=== PATIENT | female | born 1935 | race Caucasian/White ===

== ENCOUNTER 2019-12-04 20:45 | Emergency (ER) | payer MEDICARE, OTHER, SELFPAY ==
[2019-12-04 20:56] VITALS: BP 150/66; PULSE 108; RESP 20; TEMP 36.6; O2SAT 96; BMI 27.1
--- NOTE | 2019-12-04 21:31 | XR_ITS ---
EXAMINATION: XR CHEST CLINICAL INFORMATION: Shortness of breath. History of pneumonia for one week COMPARISON: None TECHNIQUE: Frontal portable view of the chest was obtained. 9:33 PM FINDINGS: There is hyperinflation of lungs. There is no acute abnormality. There is no infiltrate. No pulmonary vascular congestion. There is no pleural effusion or pneumothorax. Heart size is prominent. IMPRESSION: No acute abnormality of the chest. There is no infiltrate.
--- NOTE | 2019-12-04 21:33 | ECG_ITS ---
Test Reason : SOB Blood Pressure : / mmHG Vent. Rate : 104 BPM Atrial Rate : 104 BPM P-R Int : 182 ms QRS Dur : 092 ms QT Int : 370 ms P-R-T Axes : 067 -21 087 degrees QTc Int : 486 ms Sinus tachycardia Intra-ventricular conduction delay Left axis deviation Abnormal ECG No previous ECGs available Referred By: Nancy Mendes Electronically Signed By:RADHA TYSON MD
[2019-12-04 21:45] VITALS: BP 150/93; PULSE 69; RESP 22; O2SAT 96
[2019-12-04 22:19] LABS: MANUAL DIFF FLAG NO
[2019-12-04 22:20] LABS: Basophils Absolute Auto 0.1 X10*3/uL (0.0-0.2); Basophils Percent Auto 1.9 % (0-2); Eosinophils Absolute Auto 1.1 X10*3/uL (0.0-0.4); Eosinophils Percent Auto 14.6 % (0-4); Hematocrit 41.8 % (37-47); Hemoglobin 12.9 g/dl (12.0-16.0); Imm Gran Abs Auto 0.03 X10*3/uL (0.00-0.03); Imm Gran Pct Auto 0.4 % (0.0-0.4); Lymphocytes Absolute Auto 1.2 X10*3/uL (1.2-4.9); Lymphocytes Percent Auto 17.2 % (20-40); Mean Corpuscular HGB Conc 30.9 g/dl (31.0-35.0); Mean Corpuscular Hemoglobin 26.8 pg (27.0-33.0); Mean Corpuscular Volume 86.9 fL (80-98); Mean Platelet Volume 8.8 fL (9.4-12.3); Monocytes Absolute Auto 0.5 X10*3/uL (0.1-1.2); Monocytes Percent Auto 7.1 % (2-11); Neutrophils Absolute Auto 4.2 X10*3/uL (2.0-8.3); Neutrophils Percent Auto 58.8 % (45-73); Platelet Count 365 X10*3/uL (160-400); Red Blood Count 4.81 X10*6/uL (4.20-5.50); Red Cell Distribution Width 15.3 % (11.0-16.0); White Blood Count 7.2 X10*3/uL (4.8-10.8)
[2019-12-04 22:43] LABS: Lactic Acid 1.3 mmol/L (0.5-2.0)
[2019-12-04 22:46] LABS: Anion Gap 13 (12-20); Blood Urea Nitrogen 13 mg/dL (9-16); Carbon Dioxide 27 mmol/L (22-29); Chloride 103 mmol/L (96-108); Creatinine Clr Calc Pharmacy 55.7; Estimated Glomerular Filt Rate > 60; Glucose Random 137 mg/dL (60-115); Potassium 4.4 mmol/l (3.3-5.1); Sodium 139 mmol/L (135-145)
[2019-12-04] MEDS: 0.9 % Sodium Chloride 1,000 ML 999 ML IVCONT (22:49)
[2019-12-04 22:51] LABS: B Type Natriuretic Peptide < 10 pg/mL (<100)
--- NOTE | 2019-12-04 23:08 | ED_ITS ---
HPI - SOB/Dyspnea General Chief Complaint: Dyspnea Stated Complaint: MILD RESPIRATORY DISTRESS Time Seen by Provider: 12/04/19 21:06 Source: patient and EMS Mode of arrival: EMS Limitations: no limitations History of Present Illness HPI Narrative: patient comes to emergency room complaining of cough and shortness of breath. Patient states she was admitted for pneumonia in [facility] last week, then she was sent to short-term rehab and was discharged from there 2 days ago. Patient states her breathing has not gotten worse for the last 2 days since she was discharged from short-term rehab, however she is not getting any better. Patient states she still continues to cough. Patient denies any fever or chills. Patient states she feels a bit shortness of breath, however it has not changed for the last week. Patient denies chest pain MD elicited complaint: shortness of breath and cough Onset (ago): week(s) Context: recent illness Timing: constant Severity: moderate Related Data Home Medications Medication Instructions Recorded Confirmed amlodipine 1 tab PO DAILY 12/05/19 12/05/19 aspirin 1 tab PO DAILY 12/05/19 12/05/19 hydrochlorothiazide 0.5 tab PO DAILY 12/05/19 12/05/19 omeprazole 1 cap PO DAILY 12/05/19 12/05/19 Allergies Allergy/AdvReac Type Severity Reaction Status Date / Time No Known Allergies Allergy Verified 12/04/19 21:31 Review of Systems Review of Systems: Constitutional: No Weight loss, No Fever, No Chills, No Night Sweats, No Fatigue, No Malaise ENT/Mouth: No Hearing loss, No Ear Pain, No Nasal Congestion, No Sinus Pain, No Hoarseness, No sore throat, No Rhinorrhea, No Swallowing Difficulty Eyes: No Eye Pain, No Swelling, No Redness, No Foreign Body, No Discharge, No Vision Changes Cardiovascular: No Chest Pain, No SOB, No Dyspnea on Exertion, No Orthopnea, No Edema, No Palpitations Respiratory: continues productive cough, No Wheezing, mild continues Dyspnea Gastrointestinal: No Nausea, No Vomiting, No Diarrhea, No Constipation, No abdominal Pain, No Hematochezia, No Melena Genitourinary: no irregular bleeding, No Dysuria, No Urinary Frequency, No Hematuria, No Urinary Incontinence, No Urgency, No Flank Pain, No Urinary Flow Changes, No Hesitancy Musculoskeletal: No joint pain, No Myalgias, No Joint Swelling Skin: No Skin Lesions, No rash Neuro: No Weakness, No Numbness, No Paresthesias, No Loss of Consciousness, No Dizziness, No Headache Psych: No Anxiety/Panic, No Depression, No SI/HI/AH/VH, No Social Issues, Heme/Lymph: No Bruising, No Bleeding,No Lymphadenopathy Endocrine: No Polyuria, No Polydipsia, No Temperature Intolerance [facility] Past Medical History Medical History Acid reflux History of cancer Surgical History H/O: hysterectomy Social History Social History Alcohol intake: never Smoking Status: Never smoker Use of substances other than those prescribed or required for medical reasons: No Advance Directives: No Advance Directives Information Provided: Yes Physical Exam Vital Signs: Vital Signs: Vital Signs Temp Pulse Resp BP Pulse Ox 12/05/19 03:18 100 16 114/59 L 95 12/05/19 00:00 98.0 F 103 H 16 110/46 L 96 12/04/19 21:45 69 22 H 150/93 H 96 12/04/19 20:56 97.8 F 108 H 20 150/66 H 96 Body Mass Index 27.1 Appearance: Alert. Oriented X3. No acute distress. Eyes: Pupils equal, round and reactive to light. ENT: Pharynx normal. Neck: Normal inspection. Neck supple. No lymph nodes noted. No crepitus CVS: Normal heart rate and rhythm. Pulses normal. Normal S1 and S2 Respiratory: No respiratory distress. bilateral crackles, mild bilateral wheezing and rales Abdomen: Soft and nontender. Skin: Skin warm and dry. Normal skin color. Normal skin turgor. Extremities: chronic bilateral lower extremity edema +3 and chronic venous stasis Neuro: Oriented X 3. No motor deficit. No sensory deficit. Moving all extermities. No slurred speech. Course Reevaluation(s) Reevaluation #1: patient's wheezing continues to worse, bronchodilator offered CT scan: 1. No pulmonary embolus or other acute intrathoracic findings identified. 2. Moderate-sized hiatal hernia. 3. Cholelithiasis. I discussed the labs and CT with the patient, nothing acute. However, patient states that she feels weak, patient is by herself, unable to take care of herself. Patient states her daughter lives 1 mi away, however patient is alone most of the day. Patient is requesting to be sent back to short-term rehab patient remains stable, saturating 98% on room air. physical therapy and case management consult pending Sign out given to Dr. Maldonado Time: 00:29 MDM - SOB/Dyspnea Lab Data Result diagrams: 12/04/19 22:08 12/04/19 22:08 Labs: Lab Results 12/04/19 12/04/19 12/04/19 Range/Units 22:08 22:08 22:08 WBC 7.2 (4.8-10.8) X10*3/uL RBC 4.81 (4.20-5.50) X10*6/uL Hgb 12.9 (12.0-16.0) g/dl Hct 41.8 (37-47) % MCV 86.9 (80-98) fL MCH 26.8 L (27.0-33.0) pg MCHC 30.9 L (31.0-35.0) g/dl RDW 15.3 (11.0-16.0) % Plt Count 365 (160-400) X10*3/uL MPV 8.8 L (9.4-12.3) fL Immature Gran % (Auto) 0.4 (0.0-0.4) % Neut % (Auto) 58.8 (45-73) % Lymph % (Auto) 17.2 L (20-40) % [place] % (Auto) 7.1 (2-11) % Eos % (Auto) 14.6 H (0-4) % Baso % (Auto) 1.9 (0-2) % Lymph # (Auto) 1.2 (1.2-4.9) X10*3/uL [place] # (Auto) 0.5 (0.1-1.2) X10*3/uL Eos # (Auto) 1.1 H (0.0-0.4) X10*3/uL Baso # (Auto) 0.1 (0.0-0.2) X10*3/uL Abs Immat Gran (auto) 0.03 (0.00-0.03) X10*3/uL Absolute Neuts (auto) 4.2 (2.0-8.3) X10*3/uL Absolute Nucleated RBC 0.000 (0.0-0.012) X10*3/uL Nucleated RBC % (auto) 0.0 (0.0-0.2) /100WBC Sodium 139 (135-145) mmol/L Potassium 4.4 (3.3-5.1) mmol/l Chloride 103 (96-108) mmol/L Carbon Dioxide 27 (22-29) mmol/L Anion Gap 13 (12-20) BUN 13 (9-16) mg/dL Creatinine 0.73 (0.5-1.4) mg/dL Estim Creat Clear Calc 55.7 Estimated GFR > 60 Random Glucose 137 H (60-115) mg/dL Lactic Acid 1.3 (0.5-2.0) mmol/L Calcium 9.0 (8.4-10.2) mg/dL B-Natriuretic Peptide (<100) pg/mL Coronavirus (PCR) (Negative) 12/04/19 12/04/19 Range/Units 22:08 22:56 WBC (4.8-10.8) X10*3/uL RBC (4.20-5.50) X10*6/uL Hgb (12.0-16.0) g/dl Hct (37-47) % MCV (80-98) fL MCH (27.0-33.0) pg MCHC (31.0-35.0) g/dl RDW (11.0-16.0) % Plt Count (160-400) X10*3/uL MPV (9.4-12.3) fL Immature Gran % (Auto) (0.0-0.4) % Neut % (Auto) (45-73) % Lymph % (Auto) (20-40) % [place] % (Auto) (2-11) % Eos % (Auto) (0-4) % Baso % (Auto) (0-2) % Lymph # (Auto) (1.2-4.9) X10*3/uL [place] # (Auto) (0.1-1.2) X10*3/uL Eos # (Auto) (0.0-0.4) X10*3/uL Baso # (Auto) (0.0-0.2) X10*3/uL Abs Immat Gran (auto) (0.00-0.03) X10*3/uL Absolute Neuts (auto) (2.0-8.3) X10*3/uL Absolute Nucleated RBC (0.0-0.012) X10*3/uL Nucleated RBC % (auto) (0.0-0.2) /100WBC Sodium (135-145) mmol/L Potassium (3.3-5.1) mmol/l Chloride (96-108) mmol/L Carbon Dioxide (22-29) mmol/L Anion Gap (12-20) BUN (9-16) mg/dL Creatinine (0.5-1.4) mg/dL Estim Creat Clear Calc Estimated GFR Random Glucose (60-115) mg/dL Lactic Acid (0.5-2.0) mmol/L Calcium (8.4-10.2) mg/dL B-Natriuretic Peptide < 10 (<100) pg/mL Coronavirus (PCR) NEGATIVE (Negative) ECG Data Attestation: I personally reviewed and interpreted this ECG as follows: ( sinus rhythm, heart rate 105, QTC 486, no ST segment depression) ECG interpretation date: 12/05/19 ECG interpretation time: 00:30 Discharge Plan Discharge Clinical Impression: Muscular deconditioning Prescriptions: No Action amlodipine 5 mg tablet 1 tab PO DAILY RF: 0 aspirin 81 mg tablet,delayed release (DR/EC) 1 tab PO DAILY RF: 0 omeprazole 20 mg capsule,delayed release(DR/EC) 1 cap PO DAILY RF: 0 hydrochlorothiazide 25 mg tablet 0.5 tab PO DAILY RF: 0
--- NOTE | 2019-12-04 23:15 | CT_ITS ---
EXAMINATION: CT ANGIOGRAM OF THE CHEST WITH AND WITHOUT CONTRAST (CT PULMONARY ANGIOGRAM FOR PE) CLINICAL INFORMATION: Reason for Exam SOB, tachycardic, imobilization COMPARISON: Chest x-ray 12/04/2019 TECHNIQUE: Prior to contrast administration, noncontrast localization images were obtained. Subsequently, multidetector volumetric imaging was performed from the thoracic inlet to below the diaphragms following the administration of 80 mL Omnipaque 350 intravenous contrast. No contrast reaction reported Sagittal, coronal, and MIP oblique sagittal reformatted images were obtained on the CT workstation, uploaded to PACS, and reviewed. This CT examination was performed using dose optimization techniques as appropriate, variously including the following: *Automated exposure control *Adjustment of mA and/or kV according to patient size (this includes techniques or standardized protocols for targeted exams where dose is matched to indication/reason for exam; i.e. extremities or head) *Use of iterative reconstruction technique Total exam dose-length product 416 mGy-cm FINDINGS: QUALITY OF STUDY/CONTRAST BOLUS: Satisfactory. PULMONARY ARTERIES: No central or segmental pulmonary emboli. THORACIC AORTA: No aneurysm or dissection. Scattered atherosclerotic calcifications are present. LUNG: No regions of consolidation bilaterally. There is minimal atelectasis towards the lung bases. Calcified granulomas are noted in the right lung. PLEURA: No pleural effusion or pneumothorax. MEDIASTINUM: Normal heart size. No pericardial effusion. No hilar or mediastinal lymphadenopathy. Moderate-sized hiatal hernia is present. CHEST WALL/AXILLA: No axillary or internal mammary lymphadenopathy. OSSEOUS STRUCTURES: Changes of ankylosing spondylitis noted in the spine. UPPER ABDOMEN: Cholelithiasis is noted. No reflux of contrast into the hepatic veins to suggest elevated right heart pressures. IMPRESSION: 1. No pulmonary embolus or other acute intrathoracic findings identified. 2. Moderate-sized hiatal hernia. 3. Cholelithiasis. VTE: negative
[2019-12-05] VITALS: BP 110/46; PULSE 103; RESP 16; TEMP 36.7; O2SAT 96
--- NOTE | 2019-12-05 | PC.NURSE ---
pt w/i/e wheezing per verbal order from doc will put in bronch
[2019-12-05] MEDS: iohexoL 350 MG/ML 100 ML INFUS..BTL 65 ML IV (00:43)
[2019-12-05 01:05] LABS: SARS COV2 PCR INHOUSE NEGATIVE (Negative)
[2019-12-05 03:18] VITALS: BP 114/59; PULSE 100; RESP 16; O2SAT 95
--- NOTE | 2019-12-05 04:11 | PC.NURSE ---
pt moved over into hospital bed, changed, cleaned, repositioned. Pt given hydration and is resting comfortably now.
[2019-12-05] MEDS: guaiFENesin 200 MG/10 ML 10 ML LIQUID PO ×2 (07:24→12:24)
--- NOTE | 2019-12-05 07:33 | PC.NURSE ---
report taken from [place] r[place] pt here for sob r/t pnuemonia. xr and cta show no infiltrate or acute disease in lungs, pt satting 95 on 2l nc. pt c/o significant cough, coughing throughout first encounter. also complaining of bm incontinence from coughing. pt cleaned of large amount formed brown stool, able to repostition self to assist this rn. pt given cough syrup per request. awaitng breakfast tray.
--- NOTE | 2019-12-05 07:59 | PC.NURSE ---
physical therapy at bedside for eval
--- NOTE | 2019-12-05 09:02 | PC.NURSE ---
pt given breakfast, tolerating po w/o issue.
--- NOTE | 2019-12-05 11:28 | MHC.CM.ED ---
PATIENT TO TRANSFER TO [facility] FOR 13:00 [facility]. RN, UNIT, PATIENT, AND DAUGHTER (LINDA [phone]) AWARE OF PLAN.
--- NOTE | 2019-12-05 11:44 | PC.NURSE ---
PER CASE MGMT, PT TO BE TRANSFERRED TO [facility] AT 1300 TODAY.
--- NOTE | 2019-12-05 12:02 | PC.NURSE ---
daughter michelle updated on plan of care
== END 2019-12-05 13:35 | disposition skilled nursing facility (03) ==
PROVIDERS: Emergency Provider Emergency Medicine; PCP Hospitalist
DX: R53.81 Other malaise (principal); Z20.828 Contact with and (suspected) exposure to other viral communicable diseases; R06.02 Shortness of breath
CPT/HCPCS: 36415; 71045; 71275; 80048; 83605; 83880; 85025; 87040; 87635; 93005; 97162; 99284

== ENCOUNTER 2019-12-06 06:45 | Outpatient (REF) | payer SELFPAY ==
[2019-12-06 07:44] LABS: Hematocrit 41.2 % (37-47); Hemoglobin 12.5 g/dl (12.0-16.0); Mean Corpuscular HGB Conc 30.3 g/dl (31.0-35.0); Mean Corpuscular Hemoglobin 26.8 pg (27.0-33.0); Mean Corpuscular Volume 88.2 fL (80-98); Mean Platelet Volume 9.2 fL (9.4-12.3); Platelet Count 336 X10*3/uL (160-400); Red Blood Count 4.67 X10*6/uL (4.20-5.50); Red Cell Distribution Width 15.4 % (11.0-16.0); White Blood Count 5.6 X10*3/uL (4.8-10.8)
[2019-12-06 08:09] LABS: Alanine Aminotransferase 12 U/L (0-31); Albumin Level 3.2 g/dL (3.5-5.0); Alkaline Phosphatase 146 U/L (39-117); Anion Gap 12 (12-20); Aspartate Amino Transferase 12 U/L (5-31); Bilirubin Total 0.6 mg/dL (0.0-1.0); Blood Urea Nitrogen 8 mg/dL (9-16); Calcium 8.6 mg/dL (8.4-10.2); Carbon Dioxide 30 mmol/L (22-29); Chloride 103 mmol/L (96-108); Estimated Glomerular Filt Rate > 60; Glucose Random 113 mg/dL (60-115); Potassium 4.3 mmol/l (3.3-5.1); Sodium 141 mmol/L (135-145); Total Protein 6.6 g/dL (6.5-8.0)
== END 2019-12-06 06:46 | disposition home or self-care (01) ==
LOC: HO.MMNH1L 06:45
PROVIDERS: Visit Provider Family Medicine
DX: I10 Essential (primary) hypertension (principal)
CPT/HCPCS: 36415; 80053; 85027

== ENCOUNTER 2020-01-13 07:40 | Inpatient (IN) | payer MEDICARE, OTHER, SELFPAY ==
[2020-01-13] VITALS (27 sets, daily range): BP systolic 94–224; BP diastolic 28–119; PULSE 64–110; RESP 12–32; TEMP 34.8–37.9; O2SAT 91–100; BMI 27.4
--- NOTE | 2020-01-13 07:53 | XR_ITS ---
EXAMINATION: XR CHEST CLINICAL INFORMATION: Chest pain COMPARISON: Previous chest x-ray and chest CTA 12/04/2019 TECHNIQUE: Frontal view of the chest was obtained. FINDINGS: The cardiac and mediastinal contours are stable. There may be bronchial wall thickening at the left lung base. The lungs are otherwise clear. There is no pleural effusion or pneumothorax. There are degenerative changes of the spine and shoulders. XR/XR chest 1V IMPRESSION: Question bronchial wall thickening of the left lung base. No evidence of pneumonia.
--- NOTE | 2020-01-13 07:53 | ECG_ITS ---
Test Reason : SOB Blood Pressure : / mmHG Vent. Rate : 099 BPM Atrial Rate : 101 BPM P-R Int : 000 ms QRS Dur : 106 ms QT Int : 378 ms P-R-T Axes : 000 -02 065 degrees QTc Int : 485 ms Normal sinus rhythm with 1st degree A-V block Intra-ventricular conduction delay Nonspecific ST and T wave abnormality Abnormal ECG When compared with ECG of 04-DEC-2019 22:08, No significant changes seen Referred By: Arya Alexandre Electronically Signed By:RADHA TYSON MD
--- NOTE | 2020-01-13 07:57 | ED_ITS ---
HPI - SOB/Dyspnea General Chief Complaint: Upper Respiratory Symptoms Stated Complaint: SOB/PRODUCTIVE COUGH Time Seen by Provider: 01/13/20 07:53 History of Present Illness HPI Narrative: This is a 84 years old of female brought here by buffet server in acute respiratory distress, at arrival she is tachypneic, using accessory muscle, unable to speak. She was placed on CPAP by the buffet server MD elicited complaint: shortness of breath and cough Onset (ago): hour(s) (2) Timing: constant Severity: severe Exacerbating factors: lying flat Relieving factors: oxygen Associated symptoms: fever and sputum production Related Data Home Medications Medication Instructions Recorded Confirmed aspirin 1 tab PO DAILY 12/05/19 01/13/20 hydrochlorothiazide 0.5 tab PO DAILY 12/05/19 01/13/20 omeprazole 1 cap PO DAILY 12/05/19 01/13/20 Allergies Allergy/AdvReac Type Severity Reaction Status Date / Time No Known Allergies Allergy Verified 12/04/19 21:31 Review of Systems Review of Systems: Yes all other systems are reviewed and are negative Constitutional: Constitutional: Reports weakness Cardiovascular: Cardiovascular: Reports dyspnea Respiratory: Respiratory: Reports cough, Reports excessive phlegm production and Reports dyspnea Neurologic: Reports weakness PMFSH Past Medical History Attestation statement: The following information was validated with the patient. Medical History (Updated 01/13/20 @ 14:28 by Blake Carlson) Acid reflux History of cancer Kyphoscoliosis Surgical History H/O: hysterectomy Social History Social History Alcohol intake: never Smoking Status: Never smoker Advance Directives Date on File: 12/04/19 Physical Exam Vital Signs: Vital Signs: Last Vital Signs Temp 100.2 F 01/13/20 11:03 Pulse 90 01/13/20 13:32 Resp 18 01/13/20 11:03 BP 117/60 01/13/20 13:32 Pulse Ox 97 01/13/20 13:32 Body Mass Index 27.4 HENMT: Head: Yes normal to inspection and Yes No palpable skull fracture present Eyes: General: appearance normal, both eyes and all related structures Neck: Neck: Yes normal visual inspection and Yes full ROM Chest: Chest palpation & inspection: normal inspection of the chest Resp: Effort & Inspection: abnormal respiratory pattern, Actively coughing and respiratory distress Cardio: Rate: regular rate Rhythm: regular rhythm GI: Inspection: Yes normal to inspection Palpation (GI): Soft to palpation and no guarding Skin: General skin exam: no rashes or lesions noted and pallor Extrem: General: Yes edema Course Course Course Narrative: Spoke with daughter India [id number] Reevaluation(s) Reevaluation #1: The patient is improving clinically, ABG consistent with respiratory acidosis, elevated CO2, patient was placed on BiPAP. There is no clinical evidence of sepsis she is afebrile she has a normal white count, she is actually very hypertensive. She has lower extremity edema the patient is more consistent with congestive heart failure. Case was discussed with the light industrial supervisor Dr Carranza who is at this time here in the department examining the patient. The light industrial supervisor is requesting also a dose of IV antibiotic. Patient will be admitted to the intensive care unit. ABG will be repeated in about an hour to see the trend. Patient may need to be intubated if they gas in the clinical picture does not improve Time: 09:26 Time: 11:31 Additional Reevaluation(s): PATIENT BECAME MORE LETHARGIC ABG SHOWED A WORSENING ACIDEMIA DECISION TO INTUBATE THE PATIENT. PATIENT WAS INTUBATED WITH RSI 1 ATTEMPT NO DESAT I DO NOT THINK THAT SHE IS SEPTIC SHE HAS NO FEVER, SHE HAS A NORMAL WHITE COUN T, SHE IS ACTUALLY HYPERTENSIVE. THIS WAS DISCUSSED WITH THE LINE RIDER DR CARRANZA AND THERE IS NO INDICATION TO OBTAIN A LACTIC ACID. A CHEST X-RAY X2 WAS READ NEGATIVE FOR PNEUMONIA. THE ETIOLOGY OF THE RESPIRATORY FAILURE COULD BE MULTIFACTORIAL, SHE IS VERY KYPHOTIC, SHE HAS MOST LIKELY UNDERLYING COPD . AFTER CONSULTING AND WITH THE LINE RIDER WILL GET A CHEST CT WITHOUT CONTRAST, TO BE NOTED THAT SHE WAS IN EMERGENCY ROOM FEW WEEKS AGO IN THAT SHE HAD THAT CT CHEST WITH IV CONTRAST WHICH WAS NEGATIVE Procedures Intubation Time out performed: Yes sedative: Etomidate paralytic: Succinylcholine Laryngoscope: fiber optic video scope ET Tube Size: 7.5 Tube Placement Confirmation: visualized tube passing through cords and equal breath sounds bilaterally Patient Tolerated Procedure: well and no complications Intubation Complications: none MDM - SOB/Dyspnea Lab Data Result diagrams: 01/13/20 08:24 01/13/20 08:24 Labs: Lab Results 01/13/20 01/13/20 01/13/20 Range/Units 08:13 08:16 08:24 WBC 5.9 (4.8-10.8) X10*3/uL RBC 5.55 H (4.20-5.50) X10*6/uL Hgb 15.1 (12.0-16.0) g/dl Hct 48.2 H (37-47) % MCV 86.8 (80-98) fL MCH 27.2 (27.0-33.0) pg MCHC 31.3 (31.0-35.0) g/dl RDW 14.6 (11.0-16.0) % Plt Count 289 (160-400) X10*3/uL MPV 8.9 L (9.4-12.3) fL Immature Gran % (Auto) 0.2 (0.0-0.4) % Neut % (Auto) 73.3 H (45-73) % Lymph % (Auto) 14.9 L (20-40) % [place] % (Auto) 6.8 (2-11) % Eos % (Auto) 3.8 (0-4) % Baso % (Auto) 1.0 (0-2) % Lymph # (Auto) 0.9 L (1.2-4.9) X10*3/uL [place] # (Auto) 0.4 (0.1-1.2) X10*3/uL Eos # (Auto) 0.2 (0.0-0.4) X10*3/uL Baso # (Auto) 0.1 (0.0-0.2) X10*3/uL Abs Immat Gran (auto) 0.01 (0.00-0.03) X10*3/uL Absolute Neuts (auto) 4.3 (2.0-8.3) X10*3/uL Absolute Nucleated RBC 0.000 (0.0-0.012) X10*3/uL Nucleated RBC % (auto) 0.0 (0.0-0.2) /100WBC PT (10.8-13.0) SEC INR (0.9-1.1) ABG pH 7.24 L (7.35-7.45) ABG pCO2 78 H* (32-45) mmhg ABG pO2 132 H (83-108) mmhg ABG HCO3 33 H (22-26) mmol/l ABG O2 Saturation 98.4 % ABG Base Excess 2.0 Oxygen Given 60% Sodium (135-145) mmol/L Potassium (3.3-5.1) mmol/l Chloride (96-108) mmol/L Carbon Dioxide (22-29) mmol/L Anion Gap (12-20) BUN (9-16) mg/dL Creatinine (0.5-1.4) mg/dL Estim Creat Clear Calc Estimated GFR Random Glucose (60-115) mg/dL Calcium (8.4-10.2) mg/dL Total Bilirubin (0.0-1.0) mg/dL AST (5-31) U/L ALT (0-31) U/L Alkaline Phosphatase (39-117) U/L Troponin I High Sens (<3.5-17.0) ng/L B-Natriuretic Peptide (<100) pg/mL Total Protein (6.5-8.0) g/dL Albumin (3.5-5.0) g/dL Urine Color Urine Appearance Urine pH (5.0-8.0) Ur Specific [place] (1.005-1.025) Urine Protein (NEG-TRACE) MG/DL Urine Glucose (UA) (NEG) MG/DL Urine Ketones (NEG) MG/DL Urine Blood (NEG) Urine Nitrite (NEG) Ur Leukocyte Esterase (NEG) Urine RBC (0) /HPF Urine WBC (0-4) /HPF Ur Squamous Epith Cells /LPF Amorphous Sediment /LPF Urine Bacteria /LPF Granular Casts /LPF Coronavirus (PCR) NEGATIVE (Negative) Influenza Type A (PCR) NEGATIVE (Negative) Influenza Type B (PCR) NEGATIVE (Negative) RSV RNA Qual (PCR) NEGATIVE (Negative) 01/13/20 01/13/20 01/13/20 Range/Units 08:24 08:24 08:24 WBC (4.8-10.8) X10*3/uL RBC (4.20-5.50) X10*6/uL Hgb (12.0-16.0) g/dl Hct (37-47) % MCV (80-98) fL MCH (27.0-33.0) pg MCHC (31.0-35.0) g/dl RDW (11.0-16.0) % Plt Count (160-400) X10*3/uL MPV (9.4-12.3) fL Immature Gran % (Auto) (0.0-0.4) % Neut % (Auto) (45-73) % Lymph % (Auto) (20-40) % [place] % (Auto) (2-11) % Eos % (Auto) (0-4) % Baso % (Auto) (0-2) % Lymph # (Auto) (1.2-4.9) X10*3/uL [place] # (Auto) (0.1-1.2) X10*3/uL Eos # (Auto) (0.0-0.4) X10*3/uL Baso # (Auto) (0.0-0.2) X10*3/uL Abs Immat Gran (auto) (0.00-0.03) X10*3/uL Absolute Neuts (auto) (2.0-8.3) X10*3/uL Absolute Nucleated RBC (0.0-0.012) X10*3/uL Nucleated RBC % (auto) (0.0-0.2) /100WBC PT 11.5 (10.8-13.0) SEC INR 1.0 (0.9-1.1) ABG pH (7.35-7.45) ABG pCO2 (32-45) mmhg ABG pO2 (83-108) mmhg ABG HCO3 (22-26) mmol/l ABG O2 Saturation % ABG Base Excess Oxygen Given Sodium 132 L (135-145) mmol/L Potassium 4.0 D (3.3-5.1) mmol/l Chloride 94 L (96-108) mmol/L Carbon Dioxide 28 (22-29) mmol/L Anion Gap 14 (12-20) BUN 11 (9-16) mg/dL Creatinine 0.73 (0.5-1.4) mg/dL Estim Creat Clear Calc 51.9 Estimated GFR > 60 Random Glucose 196 H D (60-115) mg/dL Calcium 8.9 (8.4-10.2) mg/dL Total Bilirubin 0.4 (0.0-1.0) mg/dL AST 11 (5-31) U/L ALT 11 (0-31) U/L Alkaline Phosphatase 185 H D (39-117) U/L Troponin I High Sens < 3.5 (<3.5-17.0) ng/L B-Natriuretic Peptide 31 (<100) pg/mL Total Protein 8.5 H D (6.5-8.0) g/dL Albumin 4.2 D (3.5-5.0) g/dL Urine Color Urine Appearance Urine pH (5.0-8.0) Ur Specific [place] (1.005-1.025) Urine Protein (NEG-TRACE) MG/DL Urine Glucose (UA) (NEG) MG/DL Urine Ketones (NEG) MG/DL Urine Blood (NEG) Urine Nitrite (NEG) Ur Leukocyte Esterase (NEG) Urine RBC (0) /HPF Urine WBC (0-4) /HPF Ur Squamous Epith Cells /LPF Amorphous Sediment /LPF Urine Bacteria /LPF Granular Casts /LPF Coronavirus (PCR) (Negative) Influenza Type A (PCR) (Negative) Influenza Type B (PCR) (Negative) RSV RNA Qual (PCR) (Negative) 01/13/20 01/13/20 Range/Units 08:57 10:40 WBC (4.8-10.8) X10*3/uL RBC (4.20-5.50) X10*6/uL Hgb (12.0-16.0) g/dl Hct (37-47) % MCV (80-98) fL MCH (27.0-33.0) pg MCHC (31.0-35.0) g/dl RDW (11.0-16.0) % Plt Count (160-400) X10*3/uL MPV (9.4-12.3) fL Immature Gran % (Auto) (0.0-0.4) % Neut % (Auto) (45-73) % Lymph % (Auto) (20-40) % [place] % (Auto) (2-11) % Eos % (Auto) (0-4) % Baso % (Auto) (0-2) % Lymph # (Auto) (1.2-4.9) X10*3/uL [place] # (Auto) (0.1-1.2) X10*3/uL Eos # (Auto) (0.0-0.4) X10*3/uL Baso # (Auto) (0.0-0.2) X10*3/uL Abs Immat Gran (auto) (0.00-0.03) X10*3/uL Absolute Neuts (auto) (2.0-8.3) X10*3/uL Absolute Nucleated RBC (0.0-0.012) X10*3/uL Nucleated RBC % (auto) (0.0-0.2) /100WBC PT (10.8-13.0) SEC INR (0.9-1.1) ABG pH 7.18 L* (7.35-7.45) ABG pCO2 93 H* (32-45) mmhg ABG pO2 82 L (83-108) mmhg ABG HCO3 34 H (22-26) mmol/l ABG O2 Saturation 94.1 % ABG Base Excess 2.1 Oxygen Given 50% Sodium (135-145) mmol/L Potassium (3.3-5.1) mmol/l Chloride (96-108) mmol/L Carbon Dioxide (22-29) mmol/L Anion Gap (12-20) BUN (9-16) mg/dL Creatinine (0.5-1.4) mg/dL Estim Creat Clear Calc Estimated GFR Random Glucose (60-115) mg/dL Calcium (8.4-10.2) mg/dL Total Bilirubin (0.0-1.0) mg/dL AST (5-31) U/L ALT (0-31) U/L Alkaline Phosphatase (39-117) U/L Troponin I High Sens (<3.5-17.0) ng/L B-Natriuretic Peptide (<100) pg/mL Total Protein (6.5-8.0) g/dL Albumin (3.5-5.0) g/dL Urine Color YELLOW Urine Appearance CLOUDY Urine pH 7.5 (5.0-8.0) Ur Specific [place] 1.025 (1.005-1.025) Urine Protein 2+ H (NEG-TRACE) MG/DL Urine Glucose (UA) 100 H (NEG) MG/DL Urine Ketones NEG (NEG) MG/DL Urine Blood 3+ H (NEG) Urine Nitrite NEG (NEG) Ur Leukocyte Esterase NEG (NEG) Urine RBC 15-29 H (0) /HPF Urine WBC 1-4 (0-4) /HPF Ur Squamous Epith Cells TRACE /LPF Amorphous Sediment 2+ /LPF Urine Bacteria NONE /LPF Granular Casts 1-4 /LPF Coronavirus (PCR) (Negative) Influenza Type A (PCR) (Negative) Influenza Type B (PCR) (Negative) RSV RNA Qual (PCR) (Negative) ECG Data Attestation: I personally reviewed and interpreted this ECG as follows: ECG interpretation date: 01/13/20 ECG interpretation time: 08:30 Pacemaker model: Normal sinus rhythm rate 99 intraventricular conduction delay and no ischem Critical Care Time Critical Care Time Critical Care Time: Yes Total Critical Care Time: 40 Attestation: About 40 minutes was spent for the patient care speaking with the daughter, speaking with light industrial supervisor as reviewing the labs speaking with the nurse examiming the patient Discharge Plan Discharge Clinical Impression: Acute respiratory failure with hypoxia and hypercapnia Patient Disposition: Admitted As Inpatient Discharge Date/Time: 01/13/20 14:28
--- NOTE | 2020-01-13 08:24 | PC.NURSE ---
SEEN BY DR VILA AT TIME OF TRIAGE. PT TRIALEDOFF CPAP AND VENTI W/O POOR RESULTS. PL;ACED BACK ON CPAP. CLEANED UP AND B[place]RE[place] PLACED BY PCT. EKG, CXR DONE. 2O G L AC BY EMS.
[2020-01-13] MEDS: Furosemide 20 MG/2 ML VIAL IVPUSH (08:31)
[2020-01-13] MEDS: Morphine Sulfate 4 MG/ML CARTRIDGE 2 MG IVPUSH (08:31)
[2020-01-13 08:32] LABS: MANUAL DIFF FLAG NO
--- NOTE | 2020-01-13 08:34 | PC.NURSE ---
MEDICATED PER ORDERS WITH LASIX AND MORPHINE
[2020-01-13 08:36] LABS: Pt Ventilation O2% 60%
[2020-01-13 08:40] LABS: Prothrombin Time 11.5 SEC (10.8-13.0)
[2020-01-13 08:44] LABS: Basophils Absolute Auto 0.1 X10*3/uL (0.0-0.2); Eosinophils Absolute Auto 0.2 X10*3/uL (0.0-0.4); Eosinophils Percent Auto 3.8 % (0-4); Hematocrit 48.2 % (37-47); Hemoglobin 15.1 g/dl (12.0-16.0); Imm Gran Abs Auto 0.01 X10*3/uL (0.00-0.03); Imm Gran Pct Auto 0.2 % (0.0-0.4); Lymphocytes Absolute Auto 0.9 X10*3/uL (1.2-4.9); Lymphocytes Percent Auto 14.9 % (20-40); Mean Corpuscular HGB Conc 31.3 g/dl (31.0-35.0); Mean Corpuscular Hemoglobin 27.2 pg (27.0-33.0); Mean Corpuscular Volume 86.8 fL (80-98); Mean Platelet Volume 8.9 fL (9.4-12.3); Monocytes Absolute Auto 0.4 X10*3/uL (0.1-1.2); Monocytes Percent Auto 6.8 % (2-11); Neutrophils Absolute Auto 4.3 X10*3/uL (2.0-8.3); Neutrophils Percent Auto 73.3 % (45-73); Platelet Count 289 X10*3/uL (160-400); Red Blood Count 5.55 X10*6/uL (4.20-5.50); Red Cell Distribution Width 14.6 % (11.0-16.0); White Blood Count 5.9 X10*3/uL (4.8-10.8)
[2020-01-13 08:47] LABS: HCO3 ABG 33 mmol/l (22-26); PO2 ABG 132 mmhg (83-108); pH ABG 7.24 (7.35-7.45)
[2020-01-13 08:48] LABS: Oxygen Saturation ABG 98.4 %
[2020-01-13 08:50] LABS: ABG PCO2 78 mmhg (32-45)
--- NOTE | 2020-01-13 08:53 | PC.NURSE ---
DOING MUCH BETTER ON CPAP. DUE TO ABGS - PLACED ON BIPAP PER DR VILA.
[2020-01-13 09:01] LABS: Influenza A PCR NEGATIVE (Negative); Influenza B PCR NEGATIVE (Negative); Resp Syncy Virus RNA Qual PCR NEGATIVE (Negative); SARS COV2 PCR INHOUSE NEGATIVE (Negative)
[2020-01-13 09:02] LABS: Troponin-I High Sensitivity < 3.5 ng/L (<3.5-17.0)
[2020-01-13 09:04] LABS: Alanine Aminotransferase 11 U/L (0-31); Albumin Level 4.2 g/dL (3.5-5.0); Alkaline Phosphatase 185 U/L (39-117); Anion Gap 14 (12-20); Aspartate Amino Transferase 11 U/L (5-31); Bilirubin Total 0.4 mg/dL (0.0-1.0); Blood Urea Nitrogen 11 mg/dL (9-16); Calcium 8.9 mg/dL (8.4-10.2); Carbon Dioxide 28 mmol/L (22-29); Chloride 94 mmol/L (96-108); Creatinine Clr Calc Pharmacy 51.9; Estimated Glomerular Filt Rate > 60; Glucose Random 196 mg/dL (60-115); Sodium 132 mmol/L (135-145); Total Protein 8.5 g/dL (6.5-8.0)
[2020-01-13 09:08] LABS: Glucose Urine UA 100 MG/DL (NEG); Leukocyte Esterase Urine NEG (NEG); Nitrite Urine NEG (NEG); PH 7.5 (5.0-8.0); Specific Gravity - Urine 1.025 (1.005-1.025); Urine Blood 3+ (NEG); Urine Ketones NEG (NEG); Urine Protein 2+ MG/DL (NEG-TRACE)
--- NOTE | 2020-01-13 09:09 | PC.NURSE ---
DR VILA SPOKE WITH FAMILY - PT IS FULL CODE. NO SIG RESP HX. CXR SHOWS ONLY BRONCHITIS
[2020-01-13 09:12] LABS: Appearance Urine CLOUDY; Color Urine YELLOW
[2020-01-13 09:18] LABS: Amorphous Sediment Urine 2+ /LPF; Squamous Epithelial Cell Urine TRACE /LPF
--- NOTE | 2020-01-13 09:26 | PC.NURSE ---
CAN LABELER AT BEDSIDE EVALUATING PT FOR ?ICU ADMISSION
--- NOTE | 2020-01-13 09:34 | CT_ITS ---
EXAMINATION: CT CHEST WITHOUT CONTRAST CLINICAL INFORMATION: Dyspnea COMPARISON: Previous chest x-ray most recent from earlier the same day and chest CTA November 2019 TECHNIQUE: Multidetector volumetric CT imaging of the chest was done. Axial MIP volume rendering provided. Sagittal and coronal reformatted images were obtained. This CT examination was performed using dose optimization techniques as appropriate, variously including the following: *Automated exposure control *Adjustment of mA and/or kV according to patient size (this includes techniques or standardized protocols for targeted exams where dose is matched to indication/reason for exam; i.e. extremities or head) *Use of iterative reconstruction technique DLP: 331 mGy-cm FINDINGS: LUNGS: There is bronchial wall thickening, greatest in both lower lobes. There is left lower lobe atelectasis or small infiltrate. There are small calcified right pulmonary nodules that are stable. MEDIASTINUM: There is an endotracheal tube with tip 2 cm above the kitty. There are small mediastinal lymph nodes. No enlarged lymph nodes are seen. The heart does not appear enlarged. There is mild coronary artery calcification. There is no pericardial effusion. PLEURA: There is no pleural effusion. No pleural mass or thickening. AXILLA: No lymphadenopathy. UPPER ABDOMEN: There are gallstones in the gallbladder. OSSEOUS STRUCTURES: There is increased thoracic kyphosis. There are degenerative changes of the spine and at the shoulders. There is soft tissue ossification of the anterior longitudinal ligament. There is squaring of the vertebral bodies suggestive of ankylosing spondylitis or dish. CT/CT chest wo con IMPRESSION: Endotracheal tube 2 cm above the kitty. Bilateral bronchial wall thickening suggestive of bronchitis or airways disease. Left lower lobe atelectasis or small infiltrate. Gallstones. Severe thoracic kyphosis and degenerative change. Mild coronary artery calcification.
[2020-01-13 09:45] LABS: B Type Natriuretic Peptide 31 pg/mL (<100)
--- NOTE | 2020-01-13 09:45 | PC.NURSE ---
300 CC LIGHT YELLOW URINE OUTPUT
[2020-01-13 10:51] LABS: Pt Ventilation O2% 50%
[2020-01-13 11:08] LABS: Base Excess ABG 2.1; Blood Gas Serial # 5414; HCO3 ABG 34 mmol/l (22-26); Oxygen Saturation ABG 94.1 %; PO2 ABG 82 mmhg (83-108)
[2020-01-13 11:10] LABS: ABG PCO2 93 mmhg (32-45); pH ABG 7.18 (7.35-7.45)
--- NOTE | 2020-01-13 11:25 | PC.NURSE ---
MOVED TO BED 4 FOR INTUBATION AFTER LAST ABGS. INTUBATED WITH 7.[address] TRIPLETT. 10 MG OF ETOMIDATE AND 100 MG SUC USED. PROPRFOL UP AT 10 MCG/KG PER MINUTE. BEDSCALE READS 50 KG.
--- NOTE | 2020-01-13 11:27 | XR_ITS ---
EXAMINATION: XR CHEST CLINICAL INFORMATION: Status post intubation, follow-up. COMPARISON: 01/13/2020 chest radiograph at 7:58 AM. TECHNIQUE: Frontal view of the chest was obtained. FINDINGS: Support devices: Interval placement of endotracheal tube. Kyphotic positioning limits evaluation of exact location within the trachea, but the tip appears approximately 2.5 cm proximal to the kitty. The visualized lungs are clear. The heart and mediastinal structures are unremarkable. XR/XR chest 1V IMPRESSION: 1. Suboptimal evaluation of endotracheal tube position, but tip is approximately 2.5 cm proximal to the kitty. 2. No acute cardiopulmonary process in the visualized lung powers.
[2020-01-13] MEDS: Piperacillin Sodium/Tazobactam 4.5 GM in 0.9 % Sodium Chloride 100 ML IV (11:37)
[2020-01-13] MEDS: Etomidate 20 MG/10 ML VIAL 10 MG IVPUSH (11:40)
--- NOTE | 2020-01-13 11:43 | PC.NURSE ---
PROPROFOL TO 20 MCG. BUCKING TUBE
--- NOTE | 2020-01-13 12:04 | PC.NURSE ---
PT GIVEN [address] IN CT AT THIS TIME WITH RT AND PCT AND THIS RN
--- NOTE | 2020-01-13 12:11 | CT_ITS ---
EXAMINATION: CT ABDOMEN WITHOUT CONTRAST CLINICAL INFORMATION: Abdominal pain COMPARISON: None TECHNIQUE: Contiguous axial thin section helical images of the abdomen were performed without contrast. The data set was reformatted in the coronal and sagittal planes and reviewed on an independent workstation. This CT examination was performed using dose optimization techniques as appropriate, variously including the following: *Automated exposure control *Adjustment of mA and/or kV according to patient size (this includes techniques or standardized protocols for targeted exams where dose is matched to indication/reason for exam; i.e. extremities or head) *Use of iterative reconstruction technique DLP: 389 mGy-cm FINDINGS: LUNG BASES: Slightly elevated left hemidiaphragm and atelectasis or small infiltrate at the left lung base. LIVER, GALLBLADDER, BILIARY TREE: The liver is normal in size, shape and attenuation. No focal liver lesion is seen. The gallbladder is not completely imaged but appears prominent and may be enlarged. There are gallstones in the gallbladder. No gallbladder wall thickening or pericholecystic fluid is appreciated by CT. There is no biliary duct dilatation. PANCREAS: Unremarkable SPLEEN: Unremarkable ADRENAL GLANDS AND KIDNEYS: Unremarkable BOWEL LOOPS: Unremarkable LYMPH NODES: Normal. VASCULAR: There is evidence of atherosclerotic disease. BONES: There are degenerative changes of the spine. CT/CT abdomen wo con IMPRESSION: The gallbladder is not completely imaged but appears prominent and may be enlarged. There are gallstones in the gallbladder. There is no gallbladder wall thickening or pericholecystic fluid. This could be better evaluated with ultrasound if clinically indicated. Atherosclerotic disease. Otherwise unremarkable exam.
[2020-01-13] MEDS: Succinylcholine Chloride 200 MG/10 ML VIAL 100 MG IVPUSH (12:23)
[2020-01-13] MEDS: Albuterol Sulfate (0.083%) 2.5 MG/3 ML VIAL.NEB 5 MG INHALE (12:31)
--- NOTE | 2020-01-13 12:41 | PC.NURSE ---
TO AND FROM CT W/O PROBLEMS. PT WELL SEDATED ON PROPROFOL AT 20 MCG. AWAITING ICU ORDERS
--- NOTE | 2020-01-13 13:34 | PM.CCHP ---
History of Present Illness Date of Service: 01/13/20 Chief Complaint: shortness of breath 84-year-old hypertensive female on hydrochlorothiazide brought in with increasing dyspnea found to be hypoxic initial blood gas shows acute hypoxic and hypercapnic respiratory failure and tried initially on BiPAP with a failing blood gas and pCO2 rising from 70s to 90s requiring intubation and CT CT scan of the chest indicating left lower lobe infiltrate but bilateral peribronchial thickening potentially consistent with bronchitis/bronchiectasis and there is definitely underlying COPD and some degree of pulmonary fibrosis and treatment is being initiated with the Zosyn and Levaquin baseline EKG normal sinus rhythm and within normal limits and no acute ST-T changes she has severe kyphoscoliosis but was able do a bedside echocardiogram demonstrating all 4 chambers normal and heart is hyperdynamic without segmental wall motion abnormality and is no primary valve or pericardial disease Review of Systems Review of Systems: Yes all other systems are reviewed and are negative Constitutional: Constitutional: Reports weakness Neurologic: Reports weakness PMFSH Past Medical History Medical History Acid reflux History of cancer Cognitive capacity: very lethargic on BiPAP when I examined her Family History Pertinent family history: none Surgical History Surgical History H/O: hysterectomy Social History Social History Alcohol intake: never Smoking Status: Never smoker Advance Directives: Yes Advance Directives on File: Yes Advance Directives Date on File: 12/04/19 Meds Allergies Allergy/AdvReac Type Severity Reaction Status Date / Time No Known Allergies Allergy Verified 12/04/19 21:31 Home Medications Medication Instructions Recorded Confirmed Type aspirin 1 tab PO DAILY 12/05/19 01/13/20 History hydrochlorothiazide 0.5 tab PO DAILY 12/05/19 01/13/20 History omeprazole 1 cap PO DAILY 12/05/19 01/13/20 History Physical Exam Vital Signs: Vital Signs: Last Vital Signs Temp 100.2 F 01/13/20 11:03 Pulse 90 01/13/20 13:32 Resp 18 01/13/20 11:03 BP 117/60 01/13/20 13:32 Pulse Ox 97 01/13/20 13:32 Body Mass Index 27.4 low-grade temperature with blood pressure of 117/60 awake but lethargic with persistent hypercapnia and respiratory acidosis but nonfocal neurologic Sandhya skin shows bilateral stasis dermatitis with 4+ edema bilaterally no decubiti I and no wounds cardiac exam with normal S1 and normal S2 with no gallops no murmurs no adventitious sounds although there is significant diaphragmatic effort cardiac exam mainly bedside echo shows normal LV function and IVC is normal caliber and collapses with inspiration Results Labs CBC and Chem 7: 01/13/20 08:24 01/13/20 08:24 Labs: Laboratory Results - last 24 hr 01/13/20 01/13/20 01/13/20 08:13 08:16 08:24 MCV 86.8 MCH 27.2 MCHC 31.3 RDW 14.6 Plt Count 289 MPV 8.9 L Immature Gran % (Auto) 0.2 Neut % (Auto) 73.3 H Lymph % (Auto) 14.9 L [place] % (Auto) 6.8 Eos % (Auto) 3.8 Baso % (Auto) 1.0 Lymph # (Auto) 0.9 L [place] # (Auto) 0.4 Eos # (Auto) 0.2 Baso # (Auto) 0.1 Abs Immat Gran (auto) 0.01 Absolute Neuts (auto) 4.3 Absolute Nucleated RBC 0.000 Nucleated RBC % (auto) 0.0 PT INR ABG pH 7.24 L ABG pCO2 78 H* ABG pO2 132 H ABG HCO3 33 H ABG O2 Saturation 98.4 ABG Base Excess 2.0 Oxygen Given 60% Anion Gap Estim Creat Clear Calc Estimated GFR Random Glucose Calcium Total Bilirubin AST ALT Alkaline Phosphatase Troponin I High Sens B-Natriuretic Peptide Total Protein Albumin Urine Color Urine Appearance Urine pH Ur Specific [place] Urine Protein Urine Glucose (UA) Urine Ketones Urine Blood Urine Nitrite Ur Leukocyte Esterase Urine RBC Urine WBC Ur Squamous Epith Cells Amorphous Sediment Urine Bacteria Granular Casts Coronavirus (PCR) NEGATIVE Influenza Type A (PCR) NEGATIVE Influenza Type B (PCR) NEGATIVE RSV RNA Qual (PCR) NEGATIVE 01/13/20 01/13/20 01/13/20 08:24 08:24 08:24 MCV MCH MCHC RDW Plt Count MPV Immature Gran % (Auto) Neut % (Auto) Lymph % (Auto) [place] % (Auto) Eos % (Auto) Baso % (Auto) Lymph # (Auto) [place] # (Auto) Eos # (Auto) Baso # (Auto) Abs Immat Gran (auto) Absolute Neuts (auto) Absolute Nucleated RBC Nucleated RBC % (auto) PT 11.5 INR 1.0 ABG pH ABG pCO2 ABG pO2 ABG HCO3 ABG O2 Saturation ABG Base Excess Oxygen Given Anion Gap 14 Estim Creat Clear Calc 51.9 Estimated GFR > 60 Random Glucose 196 H D Calcium 8.9 Total Bilirubin 0.4 AST 11 ALT 11 Alkaline Phosphatase 185 H D Troponin I High Sens < 3.5 B-Natriuretic Peptide 31 Total Protein 8.5 H D Albumin 4.2 D Urine Color Urine Appearance Urine pH Ur Specific [place] Urine Protein Urine Glucose (UA) Urine Ketones Urine Blood Urine Nitrite Ur Leukocyte Esterase Urine RBC Urine WBC Ur Squamous Epith Cells Amorphous Sediment Urine Bacteria Granular Casts Coronavirus (PCR) Influenza Type A (PCR) Influenza Type B (PCR) RSV RNA Qual (PCR) 01/13/20 01/13/20 08:57 10:40 MCV MCH MCHC RDW Plt Count MPV Immature Gran % (Auto) Neut % (Auto) Lymph % (Auto) [place] % (Auto) Eos % (Auto) Baso % (Auto) Lymph # (Auto) [place] # (Auto) Eos # (Auto) Baso # (Auto) Abs Immat Gran (auto) Absolute Neuts (auto) Absolute Nucleated RBC Nucleated RBC % (auto) PT INR ABG pH 7.18 L* ABG pCO2 93 H* ABG pO2 82 L ABG HCO3 34 H ABG O2 Saturation 94.1 ABG Base Excess 2.1 Oxygen Given 50% Anion Gap Estim Creat Clear Calc Estimated GFR Random Glucose Calcium Total Bilirubin AST ALT Alkaline Phosphatase Troponin I High Sens B-Natriuretic Peptide Total Protein Albumin Urine Color YELLOW Urine Appearance CLOUDY Urine pH 7.5 Ur Specific [place] 1.025 Urine Protein 2+ H Urine Glucose (UA) 100 H Urine Ketones NEG Urine Blood 3+ H Urine Nitrite NEG Ur Leukocyte Esterase NEG Urine RBC 15-29 H Urine WBC 1-4 Ur Squamous Epith Cells TRACE Amorphous Sediment 2+ Urine Bacteria NONE Granular Casts 1-4 Coronavirus (PCR) Influenza Type A (PCR) Influenza Type B (PCR) RSV RNA Qual (PCR) Imaging Radiologist's Impressions: Impressions Chest X-Ray 01/13/20 07:53 IMPRESSION: Question bronchial wall thickening of the left lung base. No evidence of pneumonia. Chest CT 01/13/20 09:34 IMPRESSION: Endotracheal tube 2 cm above the kitty. Bilateral bronchial wall thickening suggestive of bronchitis or airways disease. Left lower lobe atelectasis or small infiltrate. Gallstones. Severe thoracic kyphosis and degenerative change. Mild coronary artery calcification. Chest X-Ray 01/13/20 11:27 IMPRESSION: 1. Suboptimal evaluation of endotracheal tube position, but tip is approximately 2.5 cm proximal to the kitty. 2. No acute cardiopulmonary process in the visualized lung powers. Abdomen CT 01/13/20 12:11 IMPRESSION: The gallbladder is not completely imaged but appears prominent and may be enlarged. There are gallstones in the gallbladder. There is no gallbladder wall thickening or pericholecystic fluid. This could be better evaluated with ultrasound if clinically indicated. Atherosclerotic disease. Otherwise unremarkable exam. Assessment and Plan (1) HTN (hypertension): Status: Acute (2) Acute respiratory failure with hypoxia and hypercarbia: Status: Acute (3) Community acquired pneumonia: Status: Acute (4) Kyphoscoliosis: Status: Acute (5) COPD (chronic obstructive pulmonary disease) with acute bronchitis: Status: Acute so patient is now intubated and sedated and will continue to cover with Zosyn and Levaquin for now will try to obtain sputum for culture and Legionella urinary antigen and continue at least nebulized bronchodilator therapy
--- NOTE | 2020-01-13 13:44 | PC.NURSE ---
NURSE TO NURSE WITH ICU STAFF. AWAITING RESP TO HELP TRANSPORT PATIENT
[2020-01-13] MEDS: Albuterol/Iprat 2.5/0.5MG 3 ML AMPUL.NEB INHALE ×2 (14:33→19:55)
[2020-01-13] MEDS: Midazolam HCl/PF 2 MG/2 ML VIAL 3 MG IVPUSH (14:50)
--- NOTE | 2020-01-13 15:08 | XR_ITS ---
EXAMINATION: XR CHEST CLINICAL INFORMATION: Oral gastric tube placement COMPARISON: Chest radiograph 11:30 today TECHNIQUE: Frontal view of the chest was obtained. FINDINGS: ET tube present 2 cm above the kitty. Since the prior study, a oral gastric tube has been placed with its tip in the stomach although not entirely visualized. The exam is otherwise unchanged XR/XR chest 1V IMPRESSION: Orogastric tube with tip in stomach.
--- NOTE | 2020-01-13 15:10 | MHC.CM.PN ---
Pt is presently in ICU intubated an unable to participate in CM assessment: Information obtained from EMR and by phone conversation with pt's dtr [place]. Per [place], pt was recently at [facility] for STR and d/c'd to home 2 weeks ago. [facility]. [place] provides all other care including transportation, meal prep, etc. Pt is w/c bound at baseline but can stand and pivot to get to bed and bathroom. She has been to several rehabs in the past including [facility], [facility]. [place] feels pt will not be ready to return to home directly from [facility] after this admission and is requesting STR search. Broad referrals placed: will follow IMM addendum completed - [place] states pt has a HCP - may need to contact SNF for copy.
[2020-01-13] MEDS: Phenylephrine HCL 20 MG in 0.9 % Sodium Chloride 250 ML 51.44 MG IVCONT (15:32)
--- NOTE | 2020-01-13 16:26 | W.PM.CCHP ---
Procedures Abscess I/D Date of Service: 01/13/20 Central Line Placement Right IJ: Central Line Comments: after sterile preparation and draping in the usual fashion utilizing ultrasound guidance despite the physical difficulties given her severe kyphoscoliosis a gained easy entry x1 into the right internal jugular vein passing retrograde with Seldinger technique a J tipped guidewire to the right atrium and confirm my position by slipping over an Angiocath confirming intravascular placement replacing the guidewire and then over which a dilator and then a 16 cm triple-lumen central venous catheter was placed over the guidewire with tip in the right atrium in good position confirmed by chest x-ray with no evidence of pneumothorax and this was sterilely draped and secured to the neck Consent for Procedure: Emergent-no informed consent obtained Time out performed: Yes Sterile Technique Used: Yes Patient placed on monitor/pulse ox: Yes prep: mask, gown and gloves Central line prep: Chlorhexidine scrub Local anesthesia used: lidocaine 1% Ultrasound used for placement: Yes Central line lumen inserted: triple Post procedure: sutured in place, good blood return, all ports aspirated, flushed, capped and sterile dressing applied Post procedure x-ray: tip of catheter in good position and no pneumothorax seen Patient tolerated procedure: well and no complications Complications: none
--- NOTE | 2020-01-13 16:35 | XR_ITS ---
EXAMINATION: XR CHEST CLINICAL INFORMATION: Line placement COMPARISON: Previous chest x-ray from earlier the same day TECHNIQUE: Frontal view of the chest was obtained. FINDINGS: There is a new right jugular line with tip projecting over the cavoatrial junction. There is an endotracheal tube with tip 3.5 cm above the kitty. There is an enteric tube. This projects over the proximal stomach. The tip is not seen. The cardiac and mediastinal contours are stable. There is atelectasis or small infiltrate at the left lung base. There is no pleural effusion or pneumothorax. There are degenerative changes of the spine. XR/XR chest 1V IMPRESSION: Right jugular line tip projects over cavoatrial junction. No pneumothorax. Endotracheal tube 3.5 cm above the kitty. Enteric tube projects over stomach, tip not seen.
[2020-01-13] MEDS: Doxycycline Hyclate 100 MG in 0.9 % Sodium Chloride 250 ML 166.67 MG IV (17:28)
[2020-01-13] MEDS: Enoxaparin Sodium 30 MG/0.3 ML SYRINGE SUBCUT (17:28)
[2020-01-13] MEDS: 0.9 % Sodium Chloride Flush 3 ML SYRINGE IVFLUSH (17:32)
[2020-01-13] MEDS: levoFLOXacin/D5W 750 MG/150 ML PIGGYBACK 100 MG IV (17:41)
[2020-01-13] MEDS: 0.9 % Sodium Chloride 1,000 ML 100 ML IVCONT (17:46)
[2020-01-13] MEDS: 0.9 % Sodium Chloride 1,000 ML 999 ML IVCONT (18:04)
[2020-01-13] MEDS: fentaNYL citrate/NS 1,000 MCG/100 ML PLAST..BAG 15 MCG IVCONT ×2 (18:27→21:35)
[2020-01-13] MEDS: Phenylephrine HCL 20 MG in 0.9 % Sodium Chloride 250 ML 102.88 MG IVCONT ×2 (19:10→21:35)
[2020-01-13] MEDS: propofoL 1,000 MG/100 ML VIAL 12.25 MG IVCONT (21:43)
[2020-01-13 23:10] LABS: Base Excess VBG 2.8 mmol/L; HCO3 VBG 31 mmol/L; Oxygen Saturation VBG 72.6 %; PCO2 VBG 70 mmhg; PO2 VBG 38 mmhg; pH VBG 7.27 (7.32-7.43)
[2020-01-14] VITALS (27 sets, daily range): BP systolic 88–155; BP diastolic 34–59; PULSE 68–117; RESP 15–24; TEMP 36.3–38; O2SAT 90–97; BMI 29.8
[2020-01-14] MEDS: Phenylephrine HCL 20 MG in 0.9 % Sodium Chloride 250 ML 102.88 MG IVCONT ×2 (00:22→08:44)
[2020-01-14] MEDS: 0.9 % Sodium Chloride 1,000 ML 100 ML IVCONT ×3 (00:22→19:50)
[2020-01-14] MEDS: 0.9 % Sodium Chloride Flush 3 ML SYRINGE IVFLUSH ×3 (00:23→19:03)
[2020-01-14] MEDS: Phenylephrine HCL 20 MG in 0.9 % Sodium Chloride 250 ML 128.59 MG IVCONT ×3 (02:13→06:19)
[2020-01-14] MEDS: propofoL 1,000 MG/100 ML VIAL 12.25 MG IVCONT ×2 (03:17→13:39)
[2020-01-14] MEDS: fentaNYL citrate/NS 1,000 MCG/100 ML PLAST..BAG 15 MCG IVCONT (03:52)
[2020-01-14 05:06] LABS: MANUAL DIFF FLAG NO
[2020-01-14 05:19] LABS: Basophils Absolute Auto 0.1 X10*3/uL (0.0-0.2); Basophils Percent Auto 0.8 % (0-2); Eosinophils Absolute Auto 0.6 X10*3/uL (0.0-0.4); Hematocrit 34.6 % (37-47); Hemoglobin 10.9 g/dl (12.0-16.0); Imm Gran Abs Auto 0.03 X10*3/uL (0.00-0.03); Imm Gran Pct Auto 0.3 % (0.0-0.4); Lymphocytes Absolute Auto 1.2 X10*3/uL (1.2-4.9); Lymphocytes Percent Auto 12.6 % (20-40); Mean Corpuscular HGB Conc 31.5 g/dl (31.0-35.0); Mean Corpuscular Hemoglobin 27.6 pg (27.0-33.0); Mean Corpuscular Volume 87.6 fL (80-98); Mean Platelet Volume 9.4 fL (9.4-12.3); Monocytes Absolute Auto 0.9 X10*3/uL (0.1-1.2); Monocytes Percent Auto 9.1 % (2-11); Neutrophils Percent Auto 71.2 % (45-73); Platelet Count 303 X10*3/uL (160-400); Red Blood Count 3.95 X10*6/uL (4.20-5.50); Red Cell Distribution Width 14.5 % (11.0-16.0); White Blood Count 9.9 X10*3/uL (4.8-10.8)
[2020-01-14 05:39] LABS: Base Excess VBG 1.1 mmol/L; HCO3 VBG 27 mmol/L; Oxygen Saturation VBG 79.8 %; PCO2 VBG 51 mmhg; PO2 VBG 41 mmhg; pH VBG 7.35 (7.32-7.43)
[2020-01-14 06:04] LABS: Anion Gap 11 (12-20); Blood Urea Nitrogen 13 mg/dL (9-16); Carbon Dioxide 28 mmol/L (22-29); Chloride 101 mmol/L (96-108); Creatinine Clr Calc Pharmacy 52.5; Estimated Glomerular Filt Rate > 60; Glucose Random 71 mg/dL (60-115); Magnesium 1.7 mg/dL (1.6-2.6); Phosphorus 2.8 mg/dL (2.7-4.5); Potassium 3.8 mmol/l (3.3-5.1); Sodium 136 mmol/L (135-145)
[2020-01-14 06:15] LABS: Calcium 8.2 mg/dL (8.4-10.2)
[2020-01-14] MEDS: Albuterol/Iprat 2.5/0.5MG 3 ML AMPUL.NEB INHALE ×3 (07:47→21:19)
--- NOTE | 2020-01-14 08:41 | P.PNCC_ITS ---
Subjective Subjective Date of Service: 01/14/20 Interval History: 84-year-old female with underlying COPD presents with dyspnea and altered mental status profoundly lethargic found to be in acute hypercarbic and hypoxic respiratory failure CT scan of the chest is unimpressive for pneumonia all their is at the left base and but a lot of peribronchial thickening bilaterally implying possibility of an acute on chronic asthmatic bronchitis but nonetheless an infectious etiology and the contrast failed indicate any thrombotic issues my bedside echo indicated normal cardiac function Physical Exam Vital Signs: Vital Signs: Last Vital Signs Temp 99.1 F 01/14/20 08:00 Pulse 72 01/14/20 08:00 Resp 24 H 01/14/20 08:00 BP 103/44 L 01/14/20 08:00 Pulse Ox 96 01/14/20 08:00 Body Mass Index 29.8 Const: Other: sedated and intubated skin intact no wounds no decubiti I no acrocyanosis blood pressure read does require pressor support with Netsor-Synephrine severe kyphosis so I am sure that is created a restrictive lung no adventitious sounds no accessory muscle use no diaphragmatic effort abdomen benign nondistended no guarding good bowel sounds and no organomegaly Objective Data Labs CBC & Chem 7: 01/14/20 04:45 01/14/20 04:45 Labs: Laboratory Results - last 24 hr 01/13/20 01/13/20 01/13/20 08:13 08:16 08:24 WBC 5.9 RBC 5.55 H Hgb 15.1 Hct 48.2 H MCV 86.8 MCH 27.2 MCHC 31.3 RDW 14.6 Plt Count 289 MPV 8.9 L Immature Gran % (Auto) 0.2 Neut % (Auto) 73.3 H Lymph % (Auto) 14.9 L [place] % (Auto) 6.8 Eos % (Auto) 3.8 Baso % (Auto) 1.0 Lymph # (Auto) 0.9 L [place] # (Auto) 0.4 Eos # (Auto) 0.2 Baso # (Auto) 0.1 Abs Immat Gran (auto) 0.01 Absolute Neuts (auto) 4.3 Absolute Nucleated RBC 0.000 Nucleated RBC % (auto) 0.0 PT INR ABG pH 7.24 L ABG pCO2 78 H* ABG pO2 132 H ABG HCO3 33 H ABG O2 Saturation 98.4 ABG Base Excess 2.0 VBG pH VBG pCO2 VBG pO2 VBG HCO3 VBG O2 Saturation VBG Base Excess Oxygen Given Sodium Potassium Chloride Carbon Dioxide Anion Gap BUN Creatinine Estim Creat Clear Calc Estimated GFR Random Glucose Calcium Phosphorus Magnesium Total Bilirubin AST ALT Alkaline Phosphatase Troponin I High Sens B-Natriuretic Peptide Total Protein Albumin Urine Color Urine Appearance Urine pH Ur Specific [place] Urine Protein Urine Glucose (UA) Urine Ketones Urine Blood Urine Nitrite Ur Leukocyte Esterase Urine RBC Urine WBC Ur Squamous Epith Cells Amorphous Sediment Urine Bacteria Granular Casts Coronavirus (PCR) NEGATIVE Influenza Type A (PCR) NEGATIVE Influenza Type B (PCR) NEGATIVE RSV RNA Qual (PCR) NEGATIVE 01/13/20 01/13/20 01/13/20 08:24 08:24 08:24 WBC RBC Hgb Hct MCV MCH MCHC RDW Plt Count MPV Immature Gran % (Auto) Neut % (Auto) Lymph % (Auto) [place] % (Auto) Eos % (Auto) Baso % (Auto) Lymph # (Auto) [place] # (Auto) Eos # (Auto) Baso # (Auto) Abs Immat Gran (auto) Absolute Neuts (auto) Absolute Nucleated RBC Nucleated RBC % (auto) PT 11.5 INR 1.0 ABG pH ABG pCO2 ABG pO2 ABG HCO3 ABG O2 Saturation ABG Base Excess VBG pH VBG pCO2 VBG pO2 VBG HCO3 VBG O2 Saturation VBG Base Excess Oxygen Given Sodium 132 L Potassium 4.0 D Chloride 94 L Carbon Dioxide 28 Anion Gap 14 BUN 11 Creatinine 0.73 Estim Creat Clear Calc 51.9 Estimated GFR > 60 Random Glucose 196 H D Calcium 8.9 Phosphorus Magnesium Total Bilirubin 0.4 AST 11 ALT 11 Alkaline Phosphatase 185 H D Troponin I High Sens < 3.5 B-Natriuretic Peptide 31 Total Protein 8.5 H D Albumin 4.2 D Urine Color Urine Appearance Urine pH Ur Specific [place] Urine Protein Urine Glucose (UA) Urine Ketones Urine Blood Urine Nitrite Ur Leukocyte Esterase Urine RBC Urine WBC Ur Squamous Epith Cells Amorphous Sediment Urine Bacteria Granular Casts Coronavirus (PCR) Influenza Type A (PCR) Influenza Type B (PCR) RSV RNA Qual (PCR) 01/13/20 01/13/20 01/13/20 08:57 10:40 22:24 WBC RBC Hgb Hct MCV MCH MCHC RDW Plt Count MPV Immature Gran % (Auto) Neut % (Auto) Lymph % (Auto) [place] % (Auto) Eos % (Auto) Baso % (Auto) Lymph # (Auto) [place] # (Auto) Eos # (Auto) Baso # (Auto) Abs Immat Gran (auto) Absolute Neuts (auto) Absolute Nucleated RBC Nucleated RBC % (auto) PT INR ABG pH 7.18 L* ABG pCO2 93 H* ABG pO2 82 L ABG HCO3 34 H ABG O2 Saturation 94.1 ABG Base Excess 2.1 VBG pH 7.27 L VBG pCO2 70 VBG pO2 38 VBG HCO3 31 VBG O2 Saturation 72.6 VBG Base Excess 2.8 Oxygen Given 50% Sodium Potassium Chloride Carbon Dioxide Anion Gap BUN Creatinine Estim Creat Clear Calc Estimated GFR Random Glucose Calcium Phosphorus Magnesium Total Bilirubin AST ALT Alkaline Phosphatase Troponin I High Sens B-Natriuretic Peptide Total Protein Albumin Urine Color YELLOW Urine Appearance CLOUDY Urine pH 7.5 Ur Specific [place] 1.025 Urine Protein 2+ H Urine Glucose (UA) 100 H Urine Ketones NEG Urine Blood 3+ H Urine Nitrite NEG Ur Leukocyte Esterase NEG Urine RBC 15-29 H Urine WBC 1-4 Ur Squamous Epith Cells TRACE Amorphous Sediment 2+ Urine Bacteria NONE Granular Casts 1-4 Coronavirus (PCR) Influenza Type A (PCR) Influenza Type B (PCR) RSV RNA Qual (PCR) 01/14/20 01/14/20 01/14/20 04:45 04:45 04:45 WBC 9.9 RBC 3.95 L D Hgb 10.9 L D Hct 34.6 L D MCV 87.6 MCH 27.6 MCHC 31.5 RDW 14.5 Plt Count 303 MPV 9.4 Immature Gran % (Auto) 0.3 Neut % (Auto) 71.2 Lymph % (Auto) 12.6 L [place] % (Auto) 9.1 Eos % (Auto) 6.0 H Baso % (Auto) 0.8 Lymph # (Auto) 1.2 [place] # (Auto) 0.9 Eos # (Auto) 0.6 H Baso # (Auto) 0.1 Abs Immat Gran (auto) 0.03 Absolute Neuts (auto) 7.0 Absolute Nucleated RBC 0.000 Nucleated RBC % (auto) 0.0 PT INR ABG pH ABG pCO2 ABG pO2 ABG HCO3 ABG O2 Saturation ABG Base Excess VBG pH 7.35 VBG pCO2 51 VBG pO2 41 VBG HCO3 27 VBG O2 Saturation 79.8 VBG Base Excess 1.1 Oxygen Given Sodium 136 Potassium 3.8 Chloride 101 Carbon Dioxide 28 Anion Gap 11 L BUN 13 Creatinine 0.72 Estim Creat Clear Calc 52.5 Estimated GFR > 60 Random Glucose 71 D Calcium 8.2 L D Phosphorus 2.8 Magnesium 1.7 Total Bilirubin AST ALT Alkaline Phosphatase Troponin I High Sens B-Natriuretic Peptide Total Protein Albumin Urine Color Urine Appearance Urine pH Ur Specific [place] Urine Protein Urine Glucose (UA) Urine Ketones Urine Blood Urine Nitrite Ur Leukocyte Esterase Urine RBC Urine WBC Ur Squamous Epith Cells Amorphous Sediment Urine Bacteria Granular Casts Coronavirus (PCR) Influenza Type A (PCR) Influenza Type B (PCR) RSV RNA Qual (PCR) Progress Note: A&P Assessment and plan (1) COPD (chronic obstructive pulmonary disease) with acute bronchitis: Status: Acute (2) Kyphoscoliosis: Status: Acute (3) Community acquired pneumonia: Status: Acute (4) Acute respiratory failure with hypoxia and hypercarbia: Status: Acute (5) HTN (hypertension): Status: Acute Assessment and Plan: plan is trial off of sedation to evaluate cognitive function which if adequate within bring us to the next step which is pressure support on the ventilator we will continue empiric antibiotics and pressor support for blood pressure and we are treating the CVP to maintain adequate intravascular volume Time Spent With Patient Time: Total time spent is greater than 50% in coordination of care (as documented) at patient's floor/unit and/or counseling patient: Total time spent with greater than 50% in coordination of care (as documented) at patient's floor/unit and/or counseling patient:: 35
[2020-01-14 11:59] LABS: Base Excess VBG -0.4 mmol/L; HCO3 VBG 27 mmol/L; Oxygen Saturation VBG 79.3 %; PCO2 VBG 59 mmhg; PO2 VBG 44 mmhg; pH VBG 7.28 (7.32-7.43)
[2020-01-14] MEDS: Phenylephrine HCL 20 MG in 0.9 % Sodium Chloride 250 ML 51.44 MG IVCONT (13:38)
[2020-01-14] MEDS: levoFLOXacin/D5W 750 MG/150 ML PIGGYBACK 100 MG IV (13:40)
[2020-01-14] MEDS: Enoxaparin Sodium 30 MG/0.3 ML SYRINGE SUBCUT (13:41)
--- NOTE | 2020-01-14 14:28 | MHC.PIE ---
Sedation titrated off this am, pt awake, following commands and nodding appropriately to yes/no questions. Placed pn PSV 15/8 settings by RT. PT tolerating initially with tidal volumes trending 350-400s. Pt reports feelings tired, and hr trending 120s, vbgs drawn and md aware. Sedation restarted and patient placed back on previous vent settings. Desats with repositioning, frequent suctioning for thick nielson secretions.
[2020-01-14] MEDS: Chlorhexidine Gluc Oral Rinse 15 ML MOUTHWASH BUCCAL ×2 (15:02→21:16)
[2020-01-14] MEDS: Phenylephrine HCL 20 MG in 0.9 % Sodium Chloride 250 ML 77.16 MG IVCONT (19:04)
[2020-01-14] MEDS: Piperacillin Sodium/Tazobactam 4.5 GM in 0.9 % Sodium Chloride 100 ML IV (19:48)
[2020-01-14] MEDS: fentaNYL citrate/NS 1,000 MCG/100 ML PLAST..BAG 5 MCG IVCONT (21:16)
[2020-01-14] MEDS: Phenylephrine HCL 20 MG in 0.9 % Sodium Chloride 250 ML 64.3 MG IVCONT (21:51)
[2020-01-15] VITALS (33 sets, daily range): BP systolic 106–151; BP diastolic 42–74; PULSE 77–132; RESP 14–111; TEMP 36.1–37.4; O2SAT 87–96; BMI 31.4
[2020-01-15] MEDS: Piperacillin Sodium/Tazobactam 4.5 GM in 0.9 % Sodium Chloride 100 ML IV ×2 (00:20→06:14)
[2020-01-15] MEDS: 0.9 % Sodium Chloride Flush 3 ML SYRINGE IVFLUSH ×3 (00:20→15:38)
[2020-01-15] MEDS: propofoL 1,000 MG/100 ML VIAL 10.21 MG IVCONT ×2 (00:22→08:32)
[2020-01-15] MEDS: Phenylephrine HCL 20 MG in 0.9 % Sodium Chloride 250 ML 64.3 MG IVCONT ×2 (02:31→07:27)
[2020-01-15] MEDS: 0.9 % Sodium Chloride 1,000 ML 100 ML IVCONT (05:56)
[2020-01-15 06:26] LABS: Basophils Absolute Auto 0.1 X10*3/uL (0.0-0.2); Basophils Percent Auto 0.7 % (0-2); Eosinophils Absolute Auto 0.3 X10*3/uL (0.0-0.4); Eosinophils Percent Auto 2.7 % (0-4); Hematocrit 34.8 % (37-47); Hemoglobin 10.7 g/dl (12.0-16.0); Imm Gran Abs Auto 0.05 X10*3/uL (0.00-0.03); Imm Gran Pct Auto 0.5 % (0.0-0.4); Lymphocytes Absolute Auto 0.7 X10*3/uL (1.2-4.9); Lymphocytes Percent Auto 6.9 % (20-40); MANUAL DIFF FLAG SCAN; Mean Corpuscular HGB Conc 30.7 g/dl (31.0-35.0); Mean Corpuscular Hemoglobin 27.4 pg (27.0-33.0); Mean Platelet Volume 9.2 fL (9.4-12.3); Monocytes Absolute Auto 0.8 X10*3/uL (0.1-1.2); Monocytes Percent Auto 8.3 % (2-11); Neutrophils Absolute Auto 7.9 X10*3/uL (2.0-8.3); Neutrophils Percent Auto 80.9 % (45-73); Platelet Count 212 X10*3/uL (160-400); Red Blood Count 3.91 X10*6/uL (4.20-5.50); SCAN SMEAR FLAG 1; White Blood Count 9.8 X10*3/uL (4.8-10.8)
[2020-01-15 06:38] LABS: Base Excess VBG -3.6 mmol/L; HCO3 VBG 23 mmol/L; PCO2 VBG 50 mmhg; PO2 VBG 46 mmhg; pH VBG 7.29 (7.32-7.43)
[2020-01-15 06:50] LABS: SLIDE REVIEW VERIFIED
[2020-01-15 07:14] LABS: Anion Gap 12 (12-20); Blood Urea Nitrogen 10 mg/dL (9-16); Carbon Dioxide 22 mmol/L (22-29); Chloride 106 mmol/L (96-108); Creatinine Clr Calc Pharmacy 62.2; Estimated Glomerular Filt Rate > 60; Glucose Random 71 mg/dL (60-115); Magnesium 1.8 mg/dL (1.6-2.6); Potassium 3.5 mmol/l (3.3-5.1); Sodium 136 mmol/L (135-145)
[2020-01-15 07:25] LABS: Phosphorus 2.4 mg/dL (2.7-4.5)
[2020-01-15] MEDS: Albuterol/Iprat 2.5/0.5MG 3 ML AMPUL.NEB INHALE ×3 (07:27→20:10)
[2020-01-15] MEDS: Chlorhexidine Gluc Oral Rinse 15 ML MOUTHWASH BUCCAL (11:00)
[2020-01-15] MEDS: Furosemide 20 MG/2 ML VIAL IVPUSH (11:46)
--- NOTE | 2020-01-15 12:09 | MHC.CLN ---
IF TF NEEDED; RECOMMEND [facility] AT MAX GOAL RATE 60CC/HR TO PROVIDE 1526KCALS (23KCALS/KG), 64G PROTEIN (.9G/KG), 1202CC FREE WATER FROM FORMULA MONITOR, RESIDUALS, TOLERANCE AND LYTES
[2020-01-15] MEDS: Metoprolol Tartrate 5 MG/5 ML VIAL IVPUSH (12:12)
[2020-01-15] MEDS: Enoxaparin Sodium 30 MG/0.3 ML SYRINGE SUBCUT (13:06)
--- NOTE | 2020-01-15 15:00 | PC.NURSE ---
pt sedate on propofol and fentanyl this am, sedation turned off. Pt awake, rt and md at bedside, order received to extubate patient, pt extubated at 1125 to venti mask, Large amounts of yellow bile like secretions suctioned, md aware, nasal trumpet placed to left nare, pt tolerated well, o2 sat trending 88-91, improving with suctioning, Pt encouraged to cough, strong cough noted. Nestor titrated off. Hr noted to trend up to 170s-180s svt post extubation, bp continues to trend 120s-150s systollically, md aware, lopressor 5mg given with some effect. Hr starting to trend up again, will continue to monitor.
[2020-01-15] MEDS: dilTIAZem HCL 50 MG/10 ML VIAL 10 MG IVPUSH (15:36)
--- NOTE | 2020-01-15 15:53 | P.PNCC_ITS ---
Subjective Subjective Date of Service: 01/15/20 Interval History: 84-year-old lady with underlying history of chronic hypoxic respiratory failure on supplemental O2, hypertension, GERD, unspecified cancer, recent admission to [facility] for pneumonia discharged to rehab admitted on 01/13/2020 with acute hypercapnic respiratory failure requiring intubation and ventilatory support. No events overnight. Extubated uneventfully this a.m.. Remains at high aspiration risk. Physical Exam Vital Signs: Vital Signs: Last Vital Signs Temp 97.0 F 01/15/20 14:00 Pulse 132 H 01/15/20 15:36 Resp 16 01/15/20 15:00 BP 139/64 01/15/20 15:36 Pulse Ox 93 01/15/20 15:00 Body Mass Index 31.4 Const: General: no acute distress, awake and lethargic ( [place]) Orientation/consciousness: lethargic ( [place]) Eyes: Sclerae: sclerae normal EOM: EOMs intact bilaterally Neck: Neck: Yes no lymphadenopathy, Yes trachea midline and Yes supple Resp: Effort & Inspection: normal respiratory effort and no respiratory distress Auscultation: crackles ( bibasilar crackles) Cardio: Rate: regular rate and tachycardic Rhythm: abnormal rhythm irregularly irregular Heart sounds: no gallops, no murmurs and no rubs GI: Palpation (GI): Soft to palpation and Other GI palpation findings present ( Nontender) Auscultation: normal bowel sounds Extrem: General: No clubbing, No cyanosis and Yes edema ( trace bilateral) Objective Data Labs CBC & Chem 7: 01/15/20 05:59 01/15/20 05:59 Labs: Laboratory Results - last 24 hr 01/15/20 01/15/20 01/15/20 05:59 05:59 05:59 WBC 9.8 RBC 3.91 L Hgb 10.7 L Hct 34.8 L MCV 89.0 MCH 27.4 MCHC 30.7 L RDW 15.0 Plt Count 212 D MPV 9.2 L Immature Gran % (Auto) 0.5 H Neut % (Auto) 80.9 H Lymph % (Auto) 6.9 L [place] % (Auto) 8.3 Eos % (Auto) 2.7 Baso % (Auto) 0.7 Lymph # (Auto) 0.7 L [place] # (Auto) 0.8 Eos # (Auto) 0.3 Baso # (Auto) 0.1 Abs Immat Gran (auto) 0.05 H Absolute Neuts (auto) 7.9 Absolute Nucleated RBC 0.000 Nucleated RBC % (auto) 0.0 Smear Tech's Comments VERIFIED VBG pH 7.29 L VBG pCO2 50 VBG pO2 46 VBG HCO3 23 VBG O2 Saturation 81.0 VBG Base Excess -3.6 Sodium 136 Potassium 3.5 Chloride 106 Carbon Dioxide 22 Anion Gap 12 BUN 10 Creatinine 0.65 Estim Creat Clear Calc 62.2 Estimated GFR > 60 Random Glucose 71 Calcium 8.0 L Phosphorus 2.4 L Magnesium 1.8 Microbiology Microbiology Results: Microbiology 01/13/20 14:50 Sputum - Suctioned Gram Stain - Final 01/13/20 14:50 Sputum - Suctioned Sputum Culture - Preliminary Filamentous fungus 01/13/20 08:39 Blood - Venous Blood Culture - Preliminary No growth after 48 hours. 01/13/20 08:24 Blood - Venous Blood Culture - Preliminary No growth after 48 hours. Progress Note: A&P Assessment and plan (1) Acute respiratory failure with hypoxia and hypercarbia: Status: Acute Assessment and Plan: Assessment: 84-year-old lady reportedly on chronic supplemental oxygen, admitted on 01/13/2020 with acute hypercapnic and hypoxic respiratory failure requiring intubation and ventilatory support, extubated on 01/15/2020. Plan: Neuro: No acute issues. Cardiac: No acute issues. Pulmonary: acute on chronic hypoxic and hypercapnic respiratory failure with at least partial aspiration component as an etiology. Extubated this a.m.. Remains high aspiration risk. Empirically covered with doxycycline. Renal: No acute issues. Endo: No acute issues. GI: No acute issues. ID: No acute issues Heme/Onc: No acute issues. Psych: No acute issues. Miscellaneous: No acute issues. Prophylaxis: Lovenox Diet: pending swallow evaluation Critical care time spent: 60 minutes Time Spent With Patient Time: Total time spent is greater than 50% in coordination of care (as documented) at patient's floor/unit and/or counseling patient: Total time spent with greater than 50% in coordination of care (as documented) at patient's floor/unit and/or counseling patient:: 0 Critical Care Time Critical Care Time (minutes): 60
[2020-01-15] MEDS: dilTIAZem HCL 125 MG in 0.9 % Sodium Chloride 100 ML IVCONT (15:59)
[2020-01-15 18:44] LABS: Anion Gap 17 (12-20); Blood Urea Nitrogen 9 mg/dL (9-16); Carbon Dioxide 21 mmol/L (22-29); Chloride 103 mmol/L (96-108); Creatinine Clr Calc Pharmacy 63.2; Estimated Glomerular Filt Rate > 60; Glucose Random 82 mg/dL (60-115); Potassium 3.3 mmol/l (3.3-5.1); Sodium 138 mmol/L (135-145)
[2020-01-15] MEDS: Potassium Chloride/H20 20 MEQ/100 ML PIGGYBACK 100 MEQ IV (19:38)
[2020-01-16] VITALS (27 sets, daily range): BP systolic 96–167; BP diastolic 32–64; PULSE 74–114; RESP 18–33; TEMP 36.6–37.2; O2SAT 89–93; BMI 31.1
[2020-01-16] MEDS: 0.9 % Sodium Chloride Flush 3 ML SYRINGE IVFLUSH ×4 (00:06→15:35)
[2020-01-16] MEDS: dilTIAZem HCL 125 MG in 0.9 % Sodium Chloride 100 ML 10 MG IVCONT (00:24)
[2020-01-16] MEDS: Doxycycline Hyclate 100 MG in 0.9 % Sodium Chloride 250 ML 166.67 MG IV ×2 (00:24→13:11)
--- NOTE | 2020-01-16 04:26 | PC.NURSE ---
CARE ASSUMED 23:15...AWAKE..CONVERSES..DISORIENTED TO PLACE/TIME/RECENT EVENTS...55% VENTI-MASK IN PLACE ..SAO2 88-91%..ICU PA & DR BARRON PRESENT... AFFIRMS SAO2 GOAL 88% OR GREATER...PATIENT FREQUENTLY PULLS OFF VENTI-MASK AND DESATURATES...AGITATED WITH CARE..STATES I'M ALIVE--WHY ARE YOU DOING THIS TO ME?... DID YOU GET THE OK FOR THIS FROM MY PARENTS ..CARDIZEM DRIP 10 MG/HR AT HS...MONITOR S.TACH HR 100'S-110'S AND OCCASSIONAL RUNS ATRIAL FIB HR 130'S-140'S..CARDIZEM DRIP TO 15 MG/HR...CONTINUES TO DIURESE LARGE AMOUNTS URINE AFTER BOUDREAUX REPOSITIONED...CURRENTLY NSR HR 80'S..BP STABLE
[2020-01-16 06:09] LABS: Basophils Absolute Auto 0.1 X10*3/uL (0.0-0.2); Basophils Percent Auto 0.5 % (0-2); Eosinophils Percent Auto 0.1 % (0-4); Hematocrit 38.1 % (37-47); Hemoglobin 11.7 g/dl (12.0-16.0); Imm Gran Abs Auto 0.07 X10*3/uL (0.00-0.03); Imm Gran Pct Auto 0.6 % (0.0-0.4); Lymphocytes Absolute Auto 0.4 X10*3/uL (1.2-4.9); Lymphocytes Percent Auto 3.7 % (20-40); MANUAL DIFF FLAG SCAN; Mean Corpuscular HGB Conc 30.7 g/dl (31.0-35.0); Mean Corpuscular Hemoglobin 26.7 pg (27.0-33.0); Mean Corpuscular Volume 86.8 fL (80-98); Mean Platelet Volume 9.6 fL (9.4-12.3); Monocytes Absolute Auto 0.6 X10*3/uL (0.1-1.2); Neutrophils Absolute Auto 9.9 X10*3/uL (2.0-8.3); Neutrophils Percent Auto 90.1 % (45-73); Platelet Count 237 X10*3/uL (160-400); Red Blood Count 4.39 X10*6/uL (4.20-5.50); SCAN SMEAR FLAG 1
[2020-01-16 06:26] LABS: Base Excess VBG -4.8 mmol/L; HCO3 VBG 19 mmol/L; Oxygen Saturation VBG 83.1 %; PCO2 VBG 34 mmhg; PO2 VBG 45 mmhg; pH VBG 7.38 (7.32-7.43)
[2020-01-16 06:36] LABS: SLIDE REVIEW VERIFIED
[2020-01-16 06:42] LABS: Alanine Aminotransferase 15 U/L (0-31); Albumin Level 2.8 g/dL (3.5-5.0); Alkaline Phosphatase 132 U/L (39-117); Anion Gap 21 (12-20); Aspartate Amino Transferase 25 U/L (5-31); Bilirubin Total 0.8 mg/dL (0.0-1.0); Blood Urea Nitrogen 9 mg/dL (9-16); Calcium 8.3 mg/dL (8.4-10.2); Carbon Dioxide 20 mmol/L (22-29); Chloride 103 mmol/L (96-108); Creatinine Clr Calc Pharmacy 56.7; Estimated Glomerular Filt Rate > 60; Glucose Random 96 mg/dL (60-115); Magnesium 1.7 mg/dL (1.6-2.6); Phosphorus 1.9 mg/dL (2.7-4.5); Potassium 3.1 mmol/l (3.3-5.1); Sodium 141 mmol/L (135-145)
[2020-01-16] MEDS: Albuterol/Iprat 2.5/0.5MG 3 ML AMPUL.NEB INHALE ×3 (07:53→19:35)
[2020-01-16] MEDS: Albumin Human 25 % 100 ML IV ×3 (08:59→21:09)
[2020-01-16] MEDS: dilTIAZem HCL 125 MG in 0.9 % Sodium Chloride 100 ML 15 MG IVCONT (09:21)
[2020-01-16] MEDS: Potassium Phosphate 30 MMOL in 0.9 % Sodium Chloride 500 ML 85 MMOL IV (09:23)
--- NOTE | 2020-01-16 10:06 | MHC.CM.PN ---
Patient remains in ICU. Extubated 01/14. Currently on Ventimask at 55% FIO2. Per [place], patient's daughter, patient was discharged from [facility] in October and went to [facility] on oxygen. She was discharged home without oxygen. Patient was then admitted to [facility]. She was discharged to [facility] on oxygen but discharged home without oxygen. Dr Sorto aware. Continue to monitor for d/c needs.
[2020-01-16] MEDS: dilTIAZem HCL CD 240 MG CAP.ER.DEG PO (11:27)
--- NOTE | 2020-01-16 11:31 | PC.NURSE ---
pt bathed, repositioned q2h, heel boots on, pneumatic boots intact on bilat lower legs, speech at bedside in am for eval, recommendation puree and nectar thick liquids, aware, pt ate whole container of applesauce at 1130, tolerated well, pt on 55% venti mask- 5L humidified air when eating/drinking, TLC dressing changed, pt verbal, oriented to person, redirectable to situation
--- NOTE | 2020-01-16 12:43 | PC.NURSE ---
pt on 6L o2 humidified and tolerating well, o2 sat 92%, ate 50% of lunch
--- NOTE | 2020-01-16 12:44 | PC.NURSE ---
Wound care PA Jena at bedside to eval, stage 2 noted on coccyx most likely related to pressure prior to hospital stay per PA, recommendation to apply barrier cream
[2020-01-16] MEDS: Enoxaparin Sodium 40 MG/0.4 ML SYRINGE SUBCUT (13:12)
--- NOTE | 2020-01-16 14:04 | PC.NURSE ---
Pt desaturated to 81%, placed on non rebreather, RT and MD at bedside, pt nasally suctioned for small amt brown colored secretions, and moderate amt thick creamy white secretions, pt tolerated fair, currently on venti mask at 55% o2 91%, per MD will keep in ICU at this time and keep NPO until tomorrow, pt has not had BM in 3-4 days, will give PRN colace rectally
[2020-01-16] MEDS: bisacodyL 10 MG SUPP.RECT PR (15:34)
--- NOTE | 2020-01-16 16:33 | P.PNCC_ITS ---
Subjective Subjective Date of Service: 01/16/20 Interval History: 84-year-old lady with underlying history of chronic hypoxic respiratory failure on supplemental O2, hypertension, GERD, unspecified cancer, recent admission to [facility] for pneumonia discharged to rehab admitted on 01/13/2020 with acute hypercapnic respiratory failure secondary to aspiration pneumonia requiring intubation and ventilatory support. Extubated 01/15/2020. No events overnight. With an aspiration episode through the day requiring nasotracheal suctioning. Physical Exam Vital Signs: Vital Signs: Last Vital Signs Temp 97.8 F 01/16/20 16:00 Pulse 78 01/16/20 16:00 Resp 31 H 01/16/20 16:00 BP 101/47 L 01/16/20 16:00 Pulse Ox 89 L 01/16/20 15:00 Body Mass Index 31.1 Const: General: no acute distress, awake and confusion ( Redirectable) Orientation/consciousness: confusion ( Redirectable) Eyes: Sclerae: sclerae normal EOM: EOMs intact bilaterally Neck: Neck: Yes no lymphadenopathy, Yes trachea midline and Yes supple Resp: Effort & Inspection: normal respiratory effort and no respiratory distress Auscultation: crackles ( bibasilar crackles) Cardio: Rate: regular rate Rhythm: abnormal rhythm irregularly irregular Heart sounds: no gallops, no murmurs and no rubs GI: Palpation (GI): Soft to palpation and Other GI palpation findings present ( Nontender) Auscultation: normal bowel sounds Neuro: General: confusion ( Redirectable) Extrem: General: No clubbing, No cyanosis and Yes edema ( trace bilateral) Objective Data Labs CBC & Chem 7: 01/16/20 05:25 01/16/20 05:25 Labs: Laboratory Results - last 24 hr 01/15/20 01/16/20 01/16/20 18:00 05:25 05:25 WBC 11.0 H RBC 4.39 Hgb 11.7 L Hct 38.1 MCV 86.8 MCH 26.7 L MCHC 30.7 L RDW 15.0 Plt Count 237 MPV 9.6 Immature Gran % (Auto) 0.6 H Neut % (Auto) 90.1 H Lymph % (Auto) 3.7 L [place] % (Auto) 5.0 Eos % (Auto) 0.1 Baso % (Auto) 0.5 Lymph # (Auto) 0.4 L [place] # (Auto) 0.6 Eos # (Auto) 0.0 Baso # (Auto) 0.1 Abs Immat Gran (auto) 0.07 H Absolute Neuts (auto) 9.9 H Absolute Nucleated RBC 0.000 Nucleated RBC % (auto) 0.0 Smear Tech's Comments VERIFIED VBG pH VBG pCO2 VBG pO2 VBG HCO3 VBG O2 Saturation VBG Base Excess Sodium 138 141 Potassium 3.3 3.1 L Chloride 103 103 Carbon Dioxide 21 L 20 L Anion Gap 17 21 H BUN 9 9 Creatinine 0.64 0.71 Estim Creat Clear Calc 63.2 56.7 Estimated GFR > 60 > 60 Random Glucose 82 96 Calcium 8.0 L 8.3 L Phosphorus 1.9 L Magnesium 1.7 Total Bilirubin 0.8 AST 25 D ALT 15 Alkaline Phosphatase 132 H D Total Protein 6.0 L D Albumin 2.8 L D 01/16/20 05:25 WBC RBC Hgb Hct MCV MCH MCHC RDW Plt Count MPV Immature Gran % (Auto) Neut % (Auto) Lymph % (Auto) [place] % (Auto) Eos % (Auto) Baso % (Auto) Lymph # (Auto) [place] # (Auto) Eos # (Auto) Baso # (Auto) Abs Immat Gran (auto) Absolute Neuts (auto) Absolute Nucleated RBC Nucleated RBC % (auto) Smear Tech's Comments VBG pH 7.38 VBG pCO2 34 VBG pO2 45 VBG HCO3 19 VBG O2 Saturation 83.1 VBG Base Excess -4.8 Sodium Potassium Chloride Carbon Dioxide Anion Gap BUN Creatinine Estim Creat Clear Calc Estimated GFR Random Glucose Calcium Phosphorus Magnesium Total Bilirubin AST ALT Alkaline Phosphatase Total Protein Albumin Microbiology Microbiology Results: Microbiology 01/13/20 14:50 Sputum - Suctioned Gram Stain - Final 01/13/20 14:50 Sputum - Suctioned Sputum Culture - Preliminary Filamentous fungus 01/13/20 08:39 Blood - Venous Blood Culture - Preliminary No growth after 48 hours. 01/13/20 08:24 Blood - Venous Blood Culture - Preliminary No growth after 48 hours. Progress Note: A&P Assessment and plan (1) Aspiration pneumonia: Status: Acute Assessment and Plan: Assessment: 84-year-old lady reportedly on chronic supplemental oxygen, admitted on 01/13/2020 with acute hypercapnic and hypoxic respiratory failure requiring intubation and ventilatory support, extubated on 01/15/2020. Plan: Neuro: No acute issues. Cardiac: AFib with RVR, now rate control with Cardizem. Pulmonary: acute on chronic hypoxic and hypercapnic respiratory failure secondary to aspiration pneumonia. Extubated 01/15/2020. Remains high aspiration risk. Empirically covered with doxycycline. Renal: No acute issues. Endo: No acute issues. GI: No acute issues. ID: No acute issues Heme/Onc: No acute issues. Psych: No acute issues. Miscellaneous: No acute issues. Prophylaxis: Lovenox Diet: Passed swallow evaluation, however had another aspiration episode, now NPO. Critical care time spent: 60 minutes (2) Acute respiratory failure with hypoxia and hypercarbia: Status: Acute (3) Atrial fibrillation with RVR: Status: Acute Time Spent With Patient Time: Total time spent is greater than 50% in coordination of care (as docum ented) at patient's floor/unit and/or counseling patient: Total time spent with greater than 50% in coordination of care (as documented) at patient's floor/unit and/or counseling patient:: 0 Critical Care Time Critical Care Time (minutes): 60
--- NOTE | 2020-01-16 17:01 | P.CONIM_ITS ---
History of Present Illness Data of Consult Service Date: 01/16/20 Requesting physician: Bull Sorto Primary Care Provider: Unknown Physician HPI Reason for consult: Coccyx wound Patient ambulatory and living alone in November, now having SOB and having trouble telling me how much walking she is doing. Asked to look at coccyx wound in setting of ICU, COVID neg. No steroids on home medication list to indicate chronic exposure. Nutritional status also not well understood but taking oral nu trition with nurse assist today. Review of Systems Constitutional: Constitutional: Reports weakness Neurologic: Reports confusion ( Redirectable) and Reports weakness Psychiatric: Psychiatric: Reports confusion ( Redirectable) [facility] Medical History (Updated 01/16/20 @ 17:12 by DAV Kiran) Acid reflux History of cancer Kyphoscoliosis Surgical History H/O: hysterectomy Social History Household Members: Unknown / Unable to assess Alcohol intake: never Smoking Status: Never smoker Second Hand Smoke Exposure: No Advance Directives Date on File: 12/04/19 service: No Current occupational status: unemployed Meds Allergies Allergy/AdvReac Type Severity Reaction Status Date / Time No Known Allergies Allergy Verified 12/04/19 21:31 Home Medications Medication Instructions Recorded Confirmed Type aspirin 1 tab PO DAILY 12/05/19 01/13/20 History hydrochlorothiazide 0.5 tab PO DAILY 12/05/19 01/13/20 History omeprazole 1 cap PO DAILY 12/05/19 01/13/20 History Physical Exam Vital Signs and Narrative: Vital Signs: Last Vital Signs Temp 97.8 F 01/16/20 16:00 Pulse 74 01/16/20 16:52 Resp 30 H 01/16/20 16:52 BP 101/39 L 01/16/20 16:52 Pulse Ox 92 01/16/20 16:52 Body Mass Index 31.1 Does not appear to have gross malnourishment. +DP pulses, mild edema wearing bunny boots. Deep within gluteal cleft, there is denuded epithelium, friable to touch. As the epithelial tissue sloughes off, pink granular dermis is seen beneath. No periwound maceration, typical fungal picture or stool is seen. Const: General: confusion ( Redirectable) Orientation/consciousness: confusion ( Redirectable) Neuro: General: confusion ( Redirectable) Results Labs CBC and Chem 7: 01/16/20 05:25 01/16/20 05:25 Labs: Laboratory Results - last 24 hr 01/15/20 01/16/20 01/16/20 18:00 05:25 05:25 MCV 86.8 MCH 26.7 L MCHC 30.7 L RDW 15.0 Plt Count 237 MPV 9.6 Immature Gran % (Auto) 0.6 H Neut % (Auto) 90.1 H Lymph % (Auto) 3.7 L [place] % (Auto) 5.0 Eos % (Auto) 0.1 Baso % (Auto) 0.5 Lymph # (Auto) 0.4 L [place] # (Auto) 0.6 Eos # (Auto) 0.0 Baso # (Auto) 0.1 Abs Immat Gran (auto) 0.07 H Absolute Neuts (auto) 9.9 H Absolute Nucleated RBC 0.000 Nucleated RBC % (auto) 0.0 Smear Tech's Comments VERIFIED VBG pH VBG pCO2 VBG pO2 VBG HCO3 VBG O2 Saturation VBG Base Excess Anion Gap 17 21 H Estim Creat Clear Calc 63.2 56.7 Estimated GFR > 60 > 60 Random Glucose 82 96 Calcium 8.0 L 8.3 L Phosphorus 1.9 L Magnesium 1.7 Total Bilirubin 0.8 AST 25 D ALT 15 Alkaline Phosphatase 132 H D Total Protein 6.0 L D Albumin 2.8 L D 01/16/20 05:25 MCV MCH MCHC RDW Plt Count MPV Immature Gran % (Auto) Neut % (Auto) Lymph % (Auto) [place] % (Auto) Eos % (Auto) Baso % (Auto) Lymph # (Auto) [place] # (Auto) Eos # (Auto) Baso # (Auto) Abs Immat Gran (auto) Absolute Neuts (auto) Absolute Nucleated RBC Nucleated RBC % (auto) Smear Tech's Comments VBG pH 7.38 VBG pCO2 34 VBG pO2 45 VBG HCO3 19 VBG O2 Saturation 83.1 VBG Base Excess -4.8 Anion Gap Estim Creat Clear Calc Estimated GFR Random Glucose Calcium Phosphorus Magnesium Total Bilirubin AST ALT Alkaline Phosphatase Total Protein Albumin Assessment and Plan (1) Pressure ulcer of sacral region, stage 2: Start date: 01/16/20 Status: Acute Based on location, directly over coccyx and suspected immobility, this aligns with stage 2 PU NOT hospital acquired. Chronicity does not match. Other possibility may be maceration from difficulty with hygiene, however typical periwound erythema might be expected. Barrier cream. Albumin on low side. Mobilize as tolerated. Thank you for allowing us to participate in your patient's care.
[2020-01-17] VITALS (39 sets, daily range): BP systolic 91–137; BP diastolic 37–64; PULSE 70–148; RESP 9–40; TEMP 36.6–37.7; O2SAT 82–99; BMI 28.2
[2020-01-17] MEDS: Doxycycline Hyclate 100 MG in 0.9 % Sodium Chloride 250 ML 166.67 MG IV ×2 (00:17→13:37)
--- NOTE | 2020-01-17 03:13 | XR_ITS ---
EXAMINATION: XR CHEST CLINICAL INFORMATION: Desaturation COMPARISON: 01/13/2020 TECHNIQUE: Frontal view of the chest was obtained. FINDINGS: Right internal jugular central venous catheter terminates near the cavoatrial junction. The endotracheal tube has been removed. The lungs are well expanded. There is increased small left pleural effusion. Hazy opacity of the left mid to lower lung. No pneumothorax seen. The cardiomediastinal silhouette is unchanged. XR/XR chest 1V IMPRESSION: Increased small left pleural effusion. Hazy left basilar opacity could represent atelectasis or pneumonia.
[2020-01-17] MEDS: Metoprolol Tartrate 5 MG/5 ML VIAL IVPUSH (03:25)
[2020-01-17 03:26] LABS: ABG PCO2 35 mmhg (32-45); Base Excess ABG -2.7; HCO3 ABG 21 mmol/l (22-26); Oxygen Saturation ABG 91.7 %; PO2 ABG 62 mmhg (83-108); Pt Ventilation O2% 100%; pH ABG 7.41 (7.35-7.45)
[2020-01-17] MEDS: Albumin Human 25 % 100 ML IV (03:34)
--- NOTE | 2020-01-17 04:04 | XR_ITS ---
EXAMINATION: XR CHEST CLINICAL INFORMATION: Intubated COMPARISON: 01/17/2020 TECHNIQUE: Frontal view of the chest was obtained. FINDINGS: Endotracheal tube now in place, terminating approximately 4 cm above the kitty. Enteric tube extends into the stomach. Right internal jugular central venous catheter terminates near the cavoatrial junction. Cardiac leads overlie the chest. The lungs are well expanded. Small left pleural effusion again noted. There is increasing airspace opacity at the right mid and lower lung. Small right pleural effusion now also noted. No pneumothorax. The cardiomediastinal silhouette is unchanged. XR/XR chest 1V IMPRESSION: Endotracheal tube terminating approximately 4 cm above the kitty. Small bilateral pleural effusions, increased on the right from prior. Worsening right mid and lower lung airspace opacities.
--- NOTE | 2020-01-17 04:36 | W.PM.CCHP ---
Procedures Intubation Intubation Comments: patient with acute hypoxic respiratory distress despite frequent nasotracheal suctioning. Require emergent intubation, patient intubated with a 7 cuffed ET tube on the glide scope guidance with visualization of vocal cords, without immediate complications ET tube position verified with chest x-ray Consent for Procedure: Emergent-no informed consent obtained Time out performed: Yes Sedative: propofol Mg given: 100 Paralytic: rocuronium Mg given: 30 Laryngoscope: fiber optic video scope ET tube size: 7 Tube secured depth (cm): 22 Tube secured location: lips Tube placement confirmation: visualized tube passing through cords, equal breath sounds bilaterally and confirmation by capnometry Patient tolerated procedure: well and no complications
[2020-01-17] MEDS: propofoL 1,000 MG/100 ML VIAL 23.13 MG IVCONT ×5 (05:05→18:12)
[2020-01-17] MEDS: propofoL 200 MG/20 ML VIAL 100 MG IVPUSH (05:06)
[2020-01-17] MEDS: Rocuronium Bromide 50 MG/5 ML VIAL 30 MG IVPUSH (05:06)
--- NOTE | 2020-01-17 05:27 | PC.NURSE ---
care assumed 23:15...awake...disoriented to place/time/events...nsr at hs...o2 55% via venti-mask...sao2 88-90%...remains with scattered rhonchi...approx 03:30 desaturating on venti-mask..nasally deep suctioned for for thick nielson-cream secretions per pa...repeat usctioned for no chaNGE IN SATURATION....O2 100% NRB MASK APPLIED...SAO2 REMAINS 85%...MONITOR REVERTED TO ATRIAL FIB HR 140'S...ICU PA DISCUSSED PATIENT ALVINA WITH DAUGHTER VIA PHONE...PATIENT RETUBED...#7.0 22 CM...AC24/TV 410/FIO2 80%/PEEP 5...SAO2 90-91%..PER PA SAO2 GOAL =88% OR GREATER...MEDICATED WITH LOPRESSOR 5MG IV X1 PRIOR TO INTUBATION...1/2 HOUR POST-INTUBATION REVERTED TO NSR WITH OCCASSIONAL PAC'S
[2020-01-17 06:07] LABS: Basophils Percent Auto 0.2 % (0-2); Eosinophils Percent Auto 0.1 % (0-4); Hematocrit 33.1 % (37-47); Hemoglobin 10.5 g/dl (12.0-16.0); Imm Gran Abs Auto 0.06 X10*3/uL (0.00-0.03); Imm Gran Pct Auto 0.5 % (0.0-0.4); Lymphocytes Absolute Auto 0.4 X10*3/uL (1.2-4.9); Lymphocytes Percent Auto 3.4 % (20-40); MANUAL DIFF FLAG SCAN; Mean Corpuscular HGB Conc 31.7 g/dl (31.0-35.0); Mean Corpuscular Hemoglobin 27.3 pg (27.0-33.0); Mean Platelet Volume 9.3 fL (9.4-12.3); Monocytes Percent Auto 7.7 % (2-11); Neutrophils Absolute Auto 10.9 X10*3/uL (2.0-8.3); Neutrophils Percent Auto 88.1 % (45-73); Platelet Count 292 X10*3/uL (160-400); Red Blood Count 3.85 X10*6/uL (4.20-5.50); Red Cell Distribution Width 15.4 % (11.0-16.0); SCAN SMEAR FLAG 1; White Blood Count 12.4 X10*3/uL (4.8-10.8)
[2020-01-17 06:32] LABS: Base Excess VBG -1.1 mmol/L; HCO3 VBG 25 mmol/L; Oxygen Saturation VBG 78.5 %; PCO2 VBG 45 mmhg; PO2 VBG 45 mmhg; pH VBG 7.35 (7.32-7.43)
[2020-01-17 06:47] LABS: SLIDE REVIEW VERIFIED
[2020-01-17 06:48] LABS: Albumin Level 3.7 g/dL (3.5-5.0); Anion Gap 14 (12-20); Blood Urea Nitrogen 12 mg/dL (9-16); Calcium 8.7 mg/dL (8.4-10.2); Carbon Dioxide 25 mmol/L (22-29); Chloride 108 mmol/L (96-108); Creatinine Clr Calc Pharmacy 47.9; Estimated Glomerular Filt Rate > 60; Glucose Random 182 mg/dL (60-115); Magnesium 1.8 mg/dL (1.6-2.6); Phosphorus 2.1 mg/dL (2.7-4.5); Potassium 2.9 mmol/l (3.3-5.1); Sodium 144 mmol/L (135-145)
[2020-01-17] MEDS: 0.9 % Sodium Chloride Flush 3 ML SYRINGE IVFLUSH ×3 (07:29→23:13)
[2020-01-17] MEDS: Albuterol/Iprat 2.5/0.5MG 3 ML AMPUL.NEB INHALE ×3 (08:06→20:28)
[2020-01-17] MEDS: Potassium Chloride/H20 20 MEQ/100 ML PIGGYBACK 100 MEQ IV (09:40)
--- NOTE | 2020-01-17 10:29 | MHC.CM.PN ---
Patient remains in ICU. Extubated 01/14. Reintubated 01/[address] Sorto will have a discussion with patient's daughter/HCP [place] to discuss poss trach/peg vs LICENSE INSPECTOR. Continue to monitor for d/c needs
--- NOTE | 2020-01-17 10:46 | MHC.SLORD ---
[address] [address] Speech & Hearing [phone] Name: Ernestina Georges Date of : 1935 Age: 84 Date of Registration: 01/13/20 Per EMR, pt was re-intubated early this morning due to aspiration and poor secretion management. PHARMACY TECHNICIAN ASSISTANT recommended pureed solids and nectar thick liquids yesterday. Per report, pt tolerated with no overt s/s aspiration, however demonstrated difficulty managing her own secretions following PO intake, therefore made NPO. to speak with pt's daughter regarding next steps in care. PHARMACY TECHNICIAN ASSISTANT will continue to follow as needed. Speech Language Pathology Order Status:
--- NOTE | 2020-01-17 11:15 | MHC.CLN ---
F/U PT INTUBATED RECOMMEND TF PROMOTE AT MAX GOAL RATE 40CC/HR TO PROVIDE 960KCALS (1567KCALS WITH SEDATION; 23KCALS/KG), 60G PROTEIN (.9G/KG), 805CC FREE WATER FROM FORMULA WILL ADD GAURAV TO PROMOTE WOUND HEALING MONITOR RESIDUALS, TOLERANCE AND LYTES
[2020-01-17] MEDS: Enoxaparin Sodium 40 MG/0.4 ML SYRINGE SUBCUT (13:45)
[2020-01-17] MEDS: dilTIAZem HCL 60 MG TABLET PO ×3 (13:45→21:57)
--- NOTE | 2020-01-17 16:28 | P.PNCC_ITS ---
Subjective Subjective Date of Service: 01/17/20 Interval History: 84-year-old lady with underlying history of chronic hypoxic respiratory failure on supplemental O2, hypertension, GERD, unspecified cancer, recent admission to [facility] for pneumonia discharged to rehab admitted on 01/13/2020 with acute hypercapnic respiratory failure secondary to aspiration pneumonia requiring intubation and ventilatory support. Extubated 01/15/2020. Overnight with another aspiration event requiring re-intubation. Physical Exam Vital Signs: Vital Signs: Last Vital Signs Temp 97.9 F 01/17/20 15:00 Pulse 77 01/17/20 14:08 Resp 29 H 01/17/20 15:00 BP 106/39 L 01/17/20 15:00 Pulse Ox 97 01/17/20 15:00 Body Mass Index 28.2 Const: General: no acute distress and other ( Sedated on the vent) Eyes: Sclerae: sclerae normal Neck: Neck: Yes no lymphadenopathy, Yes trachea midline and Yes supple Resp: Auscultation: crackles ( bibasilar crackles) Cardio: Rate: regular rate Rhythm: abnormal rhythm irregularly irregular Heart sounds: no gallops, no murmurs and no rubs GI: Palpation (GI): Soft to palpation and Other GI palpation findings present ( Nontender) Auscultation: normal bowel sounds Extrem: General: Yes no pedal edema, No clubbing and No cyanosis Objective Data Labs CBC & Chem 7: 01/17/20 05:52 01/17/20 05:52 Labs: Laboratory Results - last 24 hr 01/17/20 01/17/20 01/17/20 03:19 05:52 05:52 WBC 12.4 H RBC 3.85 L Hgb 10.5 L Hct 33.1 L MCV 86.0 MCH 27.3 MCHC 31.7 RDW 15.4 Plt Count 292 MPV 9.3 L Immature Gran % (Auto) 0.5 H Neut % (Auto) 88.1 H Lymph % (Auto) 3.4 L [place] % (Auto) 7.7 Eos % (Auto) 0.1 Baso % (Auto) 0.2 Lymph # (Auto) 0.4 L [place] # (Auto) 1.0 Eos # (Auto) 0.0 Baso # (Auto) 0.0 Abs Immat Gran (auto) 0.06 H Absolute Neuts (auto) 10.9 H Absolute Nucleated RBC 0.000 Nucleated RBC % (auto) 0.0 Smear Tech's Comments VERIFIED ABG pH 7.41 ABG pCO2 35 ABG pO2 62 L ABG HCO3 21 L ABG O2 Saturation 91.7 ABG Base Excess -2.7 VBG pH VBG pCO2 VBG pO2 VBG HCO3 VBG O2 Saturation VBG Base Excess Oxygen Given 100% Sodium 144 Potassium 2.9 L Chloride 108 Carbon Dioxide 25 Anion Gap 14 BUN 12 Creatinine 0.80 Estim Creat Clear Calc 47.9 Estimated GFR > 60 Random Glucose 182 H D Calcium 8.7 Phosphorus 2.1 L Magnesium 1.8 Albumin 3.7 D 01/17/20 05:52 WBC RBC Hgb Hct MCV MCH MCHC RDW Plt Count MPV Immature Gran % (Auto) Neut % (Auto) Lymph % (Auto) [place] % (Auto) Eos % (Auto) Baso % (Auto) Lymph # (Auto) [place] # (Auto) Eos # (Auto) Baso # (Auto) Abs Immat Gran (auto) Absolute Neuts (auto) Absolute Nucleated RBC Nucleated RBC % (auto) Smear Tech's Comments ABG pH ABG pCO2 ABG pO2 ABG HCO3 ABG O2 Saturation ABG Base Excess VBG pH 7.35 VBG pCO2 45 VBG pO2 45 VBG HCO3 25 VBG O2 Saturation 78.5 VBG Base Excess -1.1 Oxygen Given Sodium Potassium Chloride Carbon Dioxide Anion Gap BUN Creatinine Estim Creat Clear Calc Estimated GFR Random Glucose Calcium Phosphorus Magnesium Albumin Microbiology Microbiology Results: Microbiology 01/13/20 14:50 Sputum - Suctioned Gram Stain - Final 01/13/20 14:50 Sputum - Suctioned Sputum Culture - Preliminary Filamentous fungus 01/13/20 08:39 Blood - Venous Blood Culture - Preliminary No growth after 48 hours. 01/13/20 08:24 Blood - Venous Blood Culture - Preliminary No growth after 48 hours. Progress Note: A&P Assessment and plan (1) Aspiration pneumonia: Status: Acute Assessment and Plan: Assessment: 84-year-old lady reportedly on chronic supplemental oxygen, admitted on 01/13/2020 with acute hypercapnic and hypoxic respiratory failure requiring intubation and ventilatory support, extubated on 01/15/2020, requiring re-intubation on 01/17/2020. Plan: Neuro: No acute issues. Cardiac: AFib with RVR, now on rate control with Cardizem. Pulmonary: Acute on chronic hypoxic and hypercapnic respiratory failure secondary to aspiration pneumonia. Extubated 01/15/2020. Required re- intubation overnight. Family discussion for goals of care in progress. Renal: No acute issues. Endo: No acute issues. GI: No acute issues. ID: No acute issues Heme/Onc: No acute issues. Psych: No acute issues. Miscellaneous: No acute issues. Prophylaxis: Lovenox, famotidine Diet: Tube feeds Critical care time spent: 60 minutes (2) Atrial fibrillation with RVR: Status: Acute (3) Acute respiratory failure with hypoxia and hypercarbia: Status: Acute Time Spent With Patient Total time spent with greater than 50% in coordination of care (as documented) at patient's floor/unit and/or counseling patient:: 0 Critical Care Time Critical Care Time (minutes): 60
[2020-01-17] MEDS: fentaNYL citrate/NS 1,000 MCG/100 ML PLAST..BAG 2.5 MCG IVCONT (16:57)
[2020-01-17] MEDS: Ampicillin Sodium/Sulbactam Na 3 GM in 0.9 % Sodium Chloride 100 ML IV ×2 (17:10→23:12)
[2020-01-17] MEDS: Chlorhexidine Gluc Oral Rinse 15 ML MOUTHWASH BUCCAL (21:57)
[2020-01-17] MEDS: propofoL 1,000 MG/100 ML VIAL 18.5 MG IVCONT (22:00)
[2020-01-18] VITALS (33 sets, daily range): BP systolic 94–131; BP diastolic 40–60; PULSE 71–114; RESP 15–26; TEMP 30–37.9; O2SAT 90–97; BMI 28.4
[2020-01-18] MEDS: propofoL 1,000 MG/100 ML VIAL 13.88 MG IVCONT ×3 (04:56→15:59)
[2020-01-18] MEDS: Ampicillin Sodium/Sulbactam Na 3 GM in 0.9 % Sodium Chloride 100 ML IV ×4 (04:57→22:40)
[2020-01-18 06:47] LABS: Basophils Absolute Auto 0.1 X10*3/uL (0.0-0.2); Basophils Percent Auto 0.6 % (0-2); Eosinophils Absolute Auto 0.2 X10*3/uL (0.0-0.4); Hemoglobin 10.3 g/dl (12.0-16.0); Imm Gran Abs Auto 0.04 X10*3/uL (0.00-0.03); Imm Gran Pct Auto 0.5 % (0.0-0.4); Lymphocytes Percent Auto 12.9 % (20-40); Mean Corpuscular HGB Conc 31.2 g/dl (31.0-35.0); Mean Corpuscular Hemoglobin 27.1 pg (27.0-33.0); Mean Corpuscular Volume 86.8 fL (80-98); Mean Platelet Volume 9.7 fL (9.4-12.3); Monocytes Absolute Auto 0.8 X10*3/uL (0.1-1.2); Monocytes Percent Auto 10.7 % (2-11); Neutrophils Absolute Auto 5.6 X10*3/uL (2.0-8.3); Neutrophils Percent Auto 72.3 % (45-73); Platelet Count 255 X10*3/uL (160-400); Red Cell Distribution Width 15.8 % (11.0-16.0); White Blood Count 7.7 X10*3/uL (4.8-10.8)
[2020-01-18 06:51] LABS: PCO2 VBG 39 mmhg; pH VBG 7.45 (7.32-7.43)
[2020-01-18 06:52] LABS: Base Excess VBG 2.5 mmol/L; HCO3 VBG 27 mmol/L; Oxygen Saturation VBG 88.3 %; PO2 VBG 52 mmhg
[2020-01-18 07:01] LABS: MANUAL DIFF FLAG NO
[2020-01-18 07:41] LABS: Albumin Level 3.1 g/dL (3.5-5.0); Anion Gap 10 (12-20); Blood Urea Nitrogen 11 mg/dL (9-16); Carbon Dioxide 29 mmol/L (22-29); Chloride 108 mmol/L (96-108); Creatinine Clr Calc Pharmacy 57.5; Estimated Glomerular Filt Rate > 60; Glucose Random 193 mg/dL (60-115); Magnesium 1.9 mg/dL (1.6-2.6); Sodium 144 mmol/L (135-145)
[2020-01-18 07:53] LABS: Calcium 8.4 mg/dL (8.4-10.2); Phosphorus 1.3 mg/dL (2.7-4.5)
[2020-01-18] MEDS: Albuterol/Iprat 2.5/0.5MG 3 ML AMPUL.NEB INHALE ×3 (08:16→21:15)
[2020-01-18] MEDS: 0.9 % Sodium Chloride Flush 3 ML SYRINGE IVFLUSH ×2 (09:21→18:28)
[2020-01-18] MEDS: Chlorhexidine Gluc Oral Rinse 15 ML MOUTHWASH BUCCAL ×3 (09:55→21:23)
[2020-01-18] MEDS: dilTIAZem HCL 60 MG TABLET PO ×4 (09:56→21:23)
[2020-01-18] MEDS: Famotidine/PF 20 MG/2 ML VIAL IVPUSH (09:56)
[2020-01-18] MEDS: Albumin Human 25 % 100 ML IV ×3 (09:56→21:23)
[2020-01-18] MEDS: fentaNYL citrate/NS 1,000 MCG/100 ML PLAST..BAG 2.5 MCG IVCONT (09:58)
[2020-01-18] MEDS: Potassium Phosphate 30 MMOL in 0.9 % Sodium Chloride 500 ML 85 MMOL IV (10:46)
--- NOTE | 2020-01-18 12:30 | P.PNCC_ITS ---
Subjective Subjective Date of Service: 01/18/20 Interval History: 84-year-old lady with underlying history of chronic hypoxic respiratory failure on supplemental O2, hypertension, GERD, unspecified cancer, recent admission to [facility] for pneumonia discharged to rehab admitted on 01/13/2020 with acute hypercapnic respiratory failure secondary to aspiration pneumonia requiring intubation and ventilatory support. Extubated 01/15/2020. patient continues with aspiration events requiring re-intubation on 01/17/2020 No events overnight. Physical Exam Vital Signs: Vital Signs: Last Vital Signs Temp 99.1 F 01/18/20 10:44 Pulse 78 01/18/20 10:44 Resp 16 01/18/20 10:44 BP 110/43 L 01/18/20 09:56 Pulse Ox 91 L 01/18/20 10:44 Body Mass Index 28.4 Const: General: no acute distress and other ( Sedated on the vent, kyphotic) Eyes: Sclerae: sclerae normal Neck: Neck: Yes no lymphadenopathy, Yes trachea midline and Yes supple Resp: Auscultation: clear to auscultation bilaterally Cardio: Rate: regular rate Rhythm: abnormal rhythm irregularly irregular Heart sounds: no gallops, no murmurs and no rubs GI: Palpation (GI): Soft to palpation and Other GI palpation findings present ( Nontender) Auscultation: normal bowel sounds Extrem: General: Yes no pedal edema, No clubbing and No cyanosis Objective Data Labs CBC & Chem 7: 01/18/20 06:02 01/18/20 06:02 Labs: Laboratory Results - last 24 hr 01/18/20 01/18/20 01/18/20 06:02 06:02 06:02 WBC 7.7 RBC 3.80 L Hgb 10.3 L Hct 33.0 L MCV 86.8 MCH 27.1 MCHC 31.2 RDW 15.8 Plt Count 255 MPV 9.7 Immature Gran % (Auto) 0.5 H Neut % (Auto) 72.3 Lymph % (Auto) 12.9 L [place] % (Auto) 10.7 Eos % (Auto) 3.0 Baso % (Auto) 0.6 Lymph # (Auto) 1.0 L [place] # (Auto) 0.8 Eos # (Auto) 0.2 Baso # (Auto) 0.1 Abs Immat Gran (auto) 0.04 H Absolute Neuts (auto) 5.6 Absolute Nucleated RBC 0.000 Nucleated RBC % (auto) 0.0 VBG pH 7.45 H VBG pCO2 39 VBG pO2 52 VBG HCO3 27 VBG O2 Saturation 88.3 VBG Base Excess 2.5 Sodium 144 Potassium 3.0 L Chloride 108 Carbon Dioxide 29 Anion Gap 10 L BUN 11 Creatinine 0.67 Estim Creat Clear Calc 57.5 Estimated GFR > 60 Random Glucose 193 H Calcium 8.4 Phosphorus 1.3 L Magnesium 1.9 Albumin 3.1 L Microbiology Microbiology Results: Microbiology 01/13/20 08:39 Blood - Venous Blood Culture - Final No growth after 5 days. 01/13/20 08:24 Blood - Venous Blood Culture - Final No growth after 5 days. 01/13/20 14:50 Sputum - Suctioned Gram Stain - Final 01/13/20 14:50 Sputum - Suctioned Sputum Culture - Preliminary Filamentous fungus Progress Note: A&P Assessment and plan (1) Atrial fibrillation with RVR: Status: Acute Assessment and Plan: Assessment: 84-year-old lady reportedly on chronic supplemental oxygen, admitted on 01/13/2020 with acute hypercapnic and hypoxic respiratory failure requiring intubation and ventilatory support, extubated on 01/15/2020, requiring re-intubation on 01/17/2020. Plan: Neuro: No acute issues. Cardiac: AFib with RVR, now on rate control with Cardizem. Pulmonary: Acute on chronic hypoxic and hypercapnic respiratory failure secondary to aspiration pneumonia. Extubated 01/15/2020. Required re- intubation on 01/17/2020. Family discussion for goals of care in progress. Renal: No acute issues. Endo: No acute issues. GI: No acute issues. ID: No acute issues Heme/Onc: No acute issues. Psych: No acute issues. Miscellaneous: No acute issues. Prophylaxis: Lovenox, famotidine Diet: Tube feeds Critical care time spent: 60 minutes (2) Aspiration pneumonia: Status: Acute (3) Acute respiratory failure with hypoxia and hypercarbia: Status: Acute Time Spent With Patient Total time spent with greater than 50% in coordination of care (as documented) at patient's floor/unit and/or counseling patient:: 0 Critical Care Time Critical Care Time (minutes): 60
[2020-01-18] MEDS: Enoxaparin Sodium 40 MG/0.4 ML SYRINGE SUBCUT (13:45)
--- NOTE | 2020-01-18 15:53 | MHC.CM.PN ---
Pt required re-intubation on 01/16 after failing on 50% O2 Via Venturi mask. MD states a need for goals of care meeting with family. No plans for extubation or trach at this time: CM to await determination of family consult.
--- NOTE | 2020-01-18 19:55 | PC.NURSE ---
Pt's daughter called this evening. She stated she and her sister had a long discussion and will call in the morning with their decision. AIRWORTHINESS INSPECTOR notified.
[2020-01-19] VITALS (27 sets, daily range): BP systolic 102–176; BP diastolic 46–82; PULSE 72–133; RESP 12–49; TEMP 36.7–37.9; O2SAT 86–96; BMI 31.4
[2020-01-19] MEDS: 0.9 % Sodium Chloride Flush 3 ML SYRINGE IVFLUSH ×3 (00:25→16:30)
[2020-01-19] MEDS: propofoL 1,000 MG/100 ML VIAL 13.88 MG IVCONT ×2 (00:26→04:00)
[2020-01-19] MEDS: Albumin Human 25 % 100 ML IV (02:26)
[2020-01-19 06:20] LABS: MANUAL DIFF FLAG NO
[2020-01-19 06:27] LABS: Basophils Absolute Auto 0.1 X10*3/uL (0.0-0.2); Eosinophils Absolute Auto 0.4 X10*3/uL (0.0-0.4); Eosinophils Percent Auto 6.7 % (0-4); Hematocrit 29.9 % (37-47); Hemoglobin 9.2 g/dl (12.0-16.0); Imm Gran Abs Auto 0.04 X10*3/uL (0.00-0.03); Imm Gran Pct Auto 0.6 % (0.0-0.4); Lymphocytes Percent Auto 16.2 % (20-40); Mean Corpuscular HGB Conc 30.8 g/dl (31.0-35.0); Mean Corpuscular Hemoglobin 27.2 pg (27.0-33.0); Mean Corpuscular Volume 88.5 fL (80-98); Mean Platelet Volume 9.4 fL (9.4-12.3); Monocytes Absolute Auto 0.7 X10*3/uL (0.1-1.2); Monocytes Percent Auto 10.6 % (2-11); Neutrophils Absolute Auto 4.1 X10*3/uL (2.0-8.3); Neutrophils Percent Auto 64.9 % (45-73); Platelet Count 192 X10*3/uL (160-400); Red Blood Count 3.38 X10*6/uL (4.20-5.50); Red Cell Distribution Width 16.1 % (11.0-16.0); White Blood Count 6.2 X10*3/uL (4.8-10.8)
[2020-01-19 06:48] LABS: Base Excess VBG 3.1 mmol/L; HCO3 VBG 28 mmol/L; PCO2 VBG 46 mmhg; PO2 VBG 43 mmhg; pH VBG 7.41 (7.32-7.43)
[2020-01-19 06:49] LABS: Oxygen Saturation VBG 79.4 %
[2020-01-19 06:53] LABS: Albumin Level 3.7 g/dL (3.5-5.0); Anion Gap 10 (12-20); Blood Urea Nitrogen 12 mg/dL (9-16); Carbon Dioxide 32 mmol/L (22-29); Chloride 106 mmol/L (96-108); Creatinine Clr Calc Pharmacy 62.2; Estimated Glomerular Filt Rate > 60; Glucose Random 183 mg/dL (60-115); Magnesium 1.8 mg/dL (1.6-2.6); Phosphorus 2.3 mg/dL (2.7-4.5); Sodium 145 mmol/L (135-145)
[2020-01-19] MEDS: Albuterol/Iprat 2.5/0.5MG 3 ML AMPUL.NEB INHALE (08:26)
[2020-01-19] MEDS: Chlorhexidine Gluc Oral Rinse 15 ML MOUTHWASH BUCCAL (09:46)
[2020-01-19] MEDS: Ampicillin Sodium/Sulbactam Na 3 GM in 0.9 % Sodium Chloride 100 ML IV ×2 (09:46→16:30)
[2020-01-19] MEDS: Potassium Phosphate 30 MMOL in 0.9 % Sodium Chloride 500 ML 85 MMOL IV (09:46)
[2020-01-19] MEDS: dilTIAZem HCL 60 MG TABLET PO ×2 (09:46→12:42)
[2020-01-19] MEDS: Famotidine/PF 20 MG/2 ML VIAL IVPUSH (09:47)
[2020-01-19] MEDS: Enoxaparin Sodium 40 MG/0.4 ML SYRINGE SUBCUT (12:42)
--- NOTE | 2020-01-19 13:19 | PM.CCPN ---
Subjective Subjective Date of Service: 01/19/20 Interval History: 84-year-old lady with underlying history of chronic hypoxic respiratory failure on supplemental O2, hypertension, GERD, unspecified cancer, recent admission to [facility] for pneumonia discharged to rehab admitted on 01/13/2020 with acute hypercapnic respiratory failure secondary to aspiration pneumonia requiring intubation and ventilatory support. Extubated 01/15/2020. patient continues with aspiration events requiring re-intubation on 01/17/2020. Family/healthcare proxy decided to change code status to DNR/DNI and proceed with extubation on 01/19/2020. No events overnight. Physical Exam Vital Signs: Vital Signs: Last Vital Signs Temp 99.9 F 01/19/20 13:00 Pulse 103 H 01/19/20 13:00 Resp 37 H 01/19/20 13:00 BP 134/66 01/19/20 13:00 Pulse Ox 90 L 01/19/20 13:00 Body Mass Index 31.4 Const: General: no acute distress, alert and awake Eyes: Sclerae: sclerae normal EOM: EOMs intact bilaterally Neck: Neck: Yes no lymphadenopathy, Yes trachea midline and Yes supple Resp: Effort & Inspection: normal respiratory effort Auscultation: crackles ( Bibasilar crackles) Cardio: Rate: tachycardic Rhythm: abnormal rhythm irregularly irregular Heart sounds: no gallops, no murmurs and no rubs GI: Palpation (GI): Soft to palpation and Other GI palpation findings present ( Nontender) Auscultation: normal bowel sounds Extrem: General: No clubbing, No cyanosis and Yes edema ( trace bilateral) Objective Data Labs CBC & Chem 7: 01/19/20 05:29 01/19/20 05:29 Labs: Laboratory Results - last 24 hr 01/19/20 01/19/20 01/19/20 05:29 05:29 05:29 WBC 6.2 RBC 3.38 L Hgb 9.2 L Hct 29.9 L MCV 88.5 MCH 27.2 MCHC 30.8 L RDW 16.1 H Plt Count 192 MPV 9.4 Immature Gran % (Auto) 0.6 H Neut % (Auto) 64.9 Lymph % (Auto) 16.2 L [place] % (Auto) 10.6 Eos % (Auto) 6.7 H Baso % (Auto) 1.0 Lymph # (Auto) 1.0 L [place] # (Auto) 0.7 Eos # (Auto) 0.4 Baso # (Auto) 0.1 Abs Immat Gran (auto) 0.04 H Absolute Neuts (auto) 4.1 Absolute Nucleated RBC 0.000 Nucleated RBC % (auto) 0.0 VBG pH 7.41 VBG pCO2 46 VBG pO2 43 VBG HCO3 28 VBG O2 Saturation 79.4 VBG Base Excess 3.1 Sodium 145 Potassium 3.0 L Chloride 106 Carbon Dioxide 32 H Anion Gap 10 L BUN 12 Creatinine 0.65 Estim Creat Clear Calc 62.2 Estimated GFR > 60 Random Glucose 183 H Calcium 8.0 L Phosphorus 2.3 L Magnesium 1.8 Albumin 3.7 Microbiology Microbiology Results: Microbiology 01/13/20 08:39 Blood - Venous Blood Culture - Final No growth after 5 days. 01/13/20 08:24 Blood - Venous Blood Culture - Final No growth after 5 days. 01/13/20 14:50 Sputum - Suctioned Gram Stain - Final 01/13/20 14:50 Sputum - Suctioned Sputum Culture - Preliminary Filamentous fungus Progress Note: A&P Assessment and plan (1) Atrial fibrillation with RVR: Status: Acute Assessment and Plan: Assessment: 84-year-old lady reportedly on chronic supplemental oxygen, admitted on 01/13/2020 with acute hypercapnic and hypoxic respiratory failure requiring intubation and ventilatory support, extubated on 01/15/2020, requiring re-intubation on 01/17/2020. Plan: Neuro: No acute issues. Cardiac: AFib with RVR, now on rate control with Cardizem. Pulmonary: Acute on chronic hypoxic and hypercapnic respiratory failure secondary to aspiration pneumonia. Extubated 01/15/2020. Required re-intubation on 01/17/2020. family decided not to proceed with tracheostomy and extubated the patient understanding ongoing risk for aspiration. code status changed to DNR/ DNI. Patient be extubated if she continues to aspirate, and won't be able to be cleared, at that time the code status will be switched to comfort measures only. Renal: No acute issues. Endo: No acute issues. GI: No acute issues. ID: No acute issues Heme/Onc: No acute issues. Psych: No acute issues. Miscellaneous: No acute issues. Prophylaxis: Lovenox, famotidine Diet: Tube feeds Critical care time spent: 60 minutes (2) Aspiration pneumonia: Status: Acute (3) Acute respiratory failure with hypoxia and hypercarbia: Status: Acute Time Spent With Patient Total time spent with greater than 50% in coordination of care (as documented) at patient's floor/unit and/or counseling patient:: 0 Critical Care Time Critical Care Time (minutes): 60
--- NOTE | 2020-01-19 14:03 | MHC.SLORD ---
Patient was on vent and not appropriate for PO trials when LAW FIRM RECEPTIONIST called ICU at noon. Bedside dysphagia evaluation is pending 24-48 hours post-extubation. Name: Ernestina Georges Date of : 1935 Age: 84 Date of Registration: 01/13/20 Speech Language Pathology Order Status:
--- NOTE | 2020-01-19 15:18 | MHC.CM.PN ---
Per family discuss with MD: pt will be extubated and placed on O2 support. If pt aspirates again, she will be made ENGINEERING DOCUMENTATION SPECIALIST. D/C plan is for a transition to SNF: clincial notes remitted should pt require placement.
--- NOTE | 2020-01-19 15:27 | PC.NURSE ---
Family called to speak with this am regarding pt plan, code status updated/ sedation turned off this am, pt following commands and nodding appropriately , rt at bedside and pt placed on psv 5/5, rr up to 38-40, tidal volumes trending 300-400s, md at bedside, order recieved to extubate pt, pt extubated at 1330 to 100% non rebreather/ daughter (michelle) called and updated and at bedside/ pt desating to lows 80s, nasal trumpet placed to left nare, at bedside and pt suctioned for moderate amount of thick nielson secretions, o2 trending 88-91%, daughter remains at bedside
--- NOTE | 2020-01-19 17:52 | PM.CCN ---
Critical Care Event Note Summary Code activated: No Narrative: After extubation patient with recurrent multiple aspirations poorly controlled by nasotracheal suctioning, now developing respiratory distress. Clinical course and prognosis re-discussed with patient's healthcare proxy /daughter [place] and decision has been reached to switch goals of care to comfort measures. Critical Care Time (minutes): 60
[2020-01-19] MEDS: fentaNYL citrate/PF 100 MCG/2 ML VIAL 50 MCG IVPUSH ×2 (18:24→19:38)
--- NOTE | 2020-01-19 19:16 | PC.NURSE ---
ASSUMED CARE AT 1500. PT EXTUBATED EARLIER TODAY, PT NOW DNR/DNI. FAMILY DOES NOT WANT TRACH AND PEG. PT ON NONREBREATHER AT 100% 02. DAUGHTER AT BEDSIDE AND WENT HOME SHORTLY AFTERWARDS. PT BEGAN TO DESAT DOWN TO THE LOW 80S. RT CALLED FOR DEEP SUCTIONING. PT DEEP SUCTIONED BY RT AND COVERING MD FOR SMALL AMOUNT OF SECRETIONS, SATS STILL IN MIDS TO LOW 80S AND TACHY 120S. DAUGHTER WAS CALLED BY COVERING MD AND MADE AWARE OF SITUATION. DECISION WAS MADE FOR DISK OPERATOR. PT GIVEN 50 MCG FENTANYL FOR SEDATION. NO OTHER ISSUES AT THIS TIME.
[2020-01-19] MEDS: Scopolamine 1.5 MG PATCH.TD.3 EAR-BEHIND (19:49)
[2020-01-20 02:00] VITALS: PULSE 160; O2SAT 72
[2020-01-20] MEDS: LORazepam 2 MG/ML VIAL 1 MG IVPUSH ×6 (02:25→18:21)
[2020-01-20] MEDS: Morphine Sulfate 2 MG/ML CARTRIDGE IVPUSH ×7 (02:25→18:22)
[2020-01-20] MEDS: 0.9 % Sodium Chloride Flush 3 ML SYRINGE IVFLUSH ×3 (02:37→15:33)
[2020-01-20 03:34] VITALS: PULSE 112; O2SAT 72
[2020-01-20 06:00] VITALS: PULSE 102; O2SAT 82
[2020-01-20 07:48] VITALS: BP 128/53; PULSE 96; RESP 16; TEMP 36.7; O2SAT 90
--- NOTE | 2020-01-20 08:38 | MHC.CM.PN ---
nurse pet care attendant note eectr ic medical record reviewed , patient transferred from icu to medical surgical unit . while in icu she was extubated patient had recurrent multiple aspirations developed respiratory failure per documentation , patient is a dnr /dni and family does not want a trachea or peg placement , icu physican discussed case with family and paient made spring layer-comfort measures only . daughter /hcp [place] per nursing shift report pulse 96-102, respirations 16 bp 128/53 on non rebreather mask 100-90% [patient has desaturations to low 80 and requiring deep suctioning by the respiratory therapist , patient s daughter was with her on 01/19/2020 and physician called her last night with updates about desaturations. plan of care spring layer- contnue iv prn medications (v morphine sulfate,iv lorazepam iv fentanyl ) discharge plan pet care attendant to continue to follow and offer support to the family as needed
[2020-01-20 11:49] VITALS: BP 113/43; PULSE 92; RESP 16; TEMP 36.8; O2SAT 90
--- NOTE | 2020-01-20 14:01 | PM.EVENT ---
Event Note Date of Service: 01/20/20 Event Note: progress note Patient seen and evaluated, family at the bedside Laying comfortable in the bed, on non-rebreather mask Sleeping, looks comfortable, not in distress Acute respiratory failure with hypoxia secondary to aspiration pneumonia Comfort measures Continue lorazepam p.r.n. continue morphine p.r.n. Scopolamine for secretions Changed to 2 L nasal cannula only Will continue to monitor and offer support on daily basis
[2020-01-21] MEDS: LORazepam 2 MG/ML VIAL 1 MG IVPUSH ×3 (00:17→09:02)
[2020-01-21] MEDS: Morphine Sulfate 2 MG/ML CARTRIDGE IVPUSH ×6 (00:18→18:32)
[2020-01-21] MEDS: 0.9 % Sodium Chloride Flush 3 ML SYRINGE IVFLUSH (00:18)
[2020-01-21 04:34] VITALS: BP 119/46; PULSE 120; RESP 52; TEMP 39.5; O2SAT 70
[2020-01-21] MEDS: Acetaminophen Supp 650 MG SUPP.RECT PR (04:49)
[2020-01-21 05:59] VITALS: TEMP 38.4
--- NOTE | 2020-01-21 11:36 | PM.EVENT ---
Event Note Date of Service: 01/21/20 Event Note: Patient seen and evaluated This morning Laying comfortable in the bed, on 2 L nasal cannula Sleeping, looks comfortable, not in distress Acute respiratory failure with hypoxia secondary to aspiration pneumonia Comfort measures Continue lorazepam p.r.n. continue morphine p.r.n. Scopolamine for secretions continue 2 L nasal cannula only Will continue to monitor and offer support on daily basis
--- NOTE | 2020-01-21 12:41 | MHC.CM.PN ---
nurse child care note electronic medical records reviewed along with case discussed with staff nurse per physician documentation patient is dnr/dni comfort measures , she appears to be comfortable had been weaned from non-rebrether mask 100% o2 to 2l nasal canula, plan is to continue (LORAZEPAM , MORPHINE PRN, SCOPOLAMINE FOR SECRETIONS AND 2literoxygen via nasal canula . patients daughter michelle is often staying with her mother . patients daughter from [place] called halie mayorga asking for basic information about what one does when a loved one dies how to they go about making arrangements.services, embaming vs cremation,would they need a home here to pick the body up from the hospital and then transport to [facility] burial [facility] in [place] to name a few. halie also asked how lng the [place] can be [place] [facility] i checked with nursing supervisor cigar processing daysi jones. she confirmed that they woud have to make arrangements with home in this aerwea to pickling operator the body, obtasin the dmedical certific of and would then get the [facility] certificate and then transport to [facility] for burial. she said they can keep the body here until these arrangements can be made , but definiety family would need to be working on these arrangements child care to continue to follow, offer supprt to family as needed
--- NOTE | 2020-01-21 21:02 | PM.EVENT ---
Event Note Date of Service: 01/21/20 Event Note: Expiration note: Notified by RN around 8:55 pm that vitals were not able to be obtained on patient. I examined the patient at the bedside. Vitals not able to be obtained on exam. No breath movements seen. EKG obtained which shows asystole. code status reviewed which is Comforts measures only. Time of 8:57 pm. Family notified by RN on floor.
--- NOTE | 2020-01-21 22:04 | PC.NURSE ---
[facility] called spoke with daysi.pt was declined
--- NOTE | 2020-01-21 22:05 | PC.NURSE ---
2039 pt found with no resp no pulse.dr mikal rojas notified.stat ekg done.pt pronounced at 2056.daughter michelle notified.came to see pt.belongings taken home.will call with home when decision made by family.
--- NOTE | 2020-04-16 08:48 | PM.DS ---
DS: Providers Provider Date of Service: 04/16/20 Date of admission: 01/13/20 12:51 Primary care physician: Unknown Physician DS: Diagnosis Discharge Diagnosis (1) Atrial fibrillation with RVR: Status: Acute (2) Aspiration pneumonia: Status: Acute (3) Acute respiratory failure with hypoxia and hypercarbia: Status: Acute (4) Pressure ulcer of sacral region, stage 2: Status: Acute DS: Medications Discharge Medications Home Medications: Home Medications Medication Instructions Recorded Confirmed aspirin 1 tab PO DAILY 12/05/19 01/13/20 hydrochlorothiazide 0.5 tab PO DAILY 12/05/19 01/13/20 omeprazole 1 cap PO DAILY 12/05/19 01/13/20 DS: Summary Hospital Course Hospital Course: Admission note HPI 84-year-old hypertensive female on hydrochlorothiazide brought in with increasing dyspnea found to be hypoxic initial blood gas shows acute hypoxic and hypercapnic respiratory failure and tried initially on BiPAP with a failing blood gas and pCO2 rising from 70s to 90s requiring intubation and CT CT scan of the chest indicating left lower lobe infiltrate but bilateral peribronchial thickening potentially consistent with bronchitis/bronchiectasis and there is definitely underlying COPD and some degree of pulmonary fibrosis and treatment is being initiated with the Zosyn and Levaquin baseline EKG normal sinus rhythm and within normal limits and no acute ST-T changes she has severe kyphoscoliosis but was able do a bedside echocardiogram demonstrating all 4 chambers normal and heart is hyperdynamic without segmental wall motion abnormality and is no primary valve or pericardial disease Hospital course Admitted to the hospital to the ICU unit for treatment of acute hypoxic respiratory failure secondary to aspiration pneumonia. She was treated with IV antibiotics but continue to be altered with multiple aspirations noted on imaging. Goals of care discussed with the daughters and the patient was extubated in ICU and as her status was changed to comfort measures. She was monitored on the medical floor with come 1st medications of lorazepam and morphine patient announced did around 20:57 on 01/21/2020. Time Spent with Patient Time attestation: Total time spent providing and/or coordinating discharge services: Discharge coordination time: Greater than 30 minutes Physical Exam Vital Signs: Vital Signs: Last Vital Signs Temp 101.2 F H 01/21/20 05:59 Pulse 120 H 01/21/20 04:34 Resp 52 H 01/21/20 04:34 BP 119/46 L 01/21/20 04:34 Pulse Ox 70 L 01/21/20 04:34 Body Mass Index 31.4 Const: Other: DS: Data Data Completed and Pending Completed studies during hospitalization [Text1]: Procedures Assistance with Respiratory Ventilation, Less than 24 Consecutive Hours, Continuous Positive Airway Pressure (01/13/20) Insertion of Endotracheal Airway into Trachea, Via Natural or Artificial Opening Endoscopic (01/13/20) Insertion of Infusion Device into Right Atrium, Percutaneous Approach (01/13/20) Respiratory Ventilation, 24-96 Consecutive Hours (01/13/20) Ultrasonography of Superior Vena Cava, Guidance (01/13/20) Discharge Plan Discharge Date/Time: 01/21/20 20:57 Patient Disposition: Referrals: Physician,Unknown [Primary Care Provider] - Discharge Medications: No Action aspirin 81 mg tablet,delayed release (DR/EC) 1 tab PO DAILY RF: 0 omeprazole 20 mg capsule,delayed release(DR/EC) 1 cap PO DAILY RF: 0 hydrochlorothiazide 25 mg tablet 0.5 tab PO DAILY RF: 0 Discharge Orders: Discharge Order (Routine); Ordered 01/21/20 Ordered By: Jennifer Warren Discharge Date/Time: 01/21/20 20:57
== END 2020-01-21 20:57 | disposition expired | DRG 208 ==
LOC: HO.ED 08:04 → HO.ICU 13:07 → HO.S3 01-19 20:47
PROVIDERS: Internal Medicine Pulmonary Disease; Physician Assistant; Registered Nurse Community Health; Admitting Provider Internal Medicine Cardiovascular Disease; Emergency Provider Emergency Medicine; Visit Provider Internal Medicine
DX: J69.0 Pneumonitis due to inhalation of food and vomit (principal); J96.22 Acute and chronic respiratory failure with hypercapnia; J96.21 Acute and chronic respiratory failure with hypoxia; J44.0 Chronic obstructive pulmonary disease with (acute) lower respiratory infection; J44.1 Chronic obstructive pulmonary disease with (acute) exacerbation; Q67.5 Congenital deformity of spine; K21.9 Gastro-esophageal reflux disease without esophagitis; L89.152 Pressure ulcer of sacral region, stage 2; Z99.81 Dependence on supplemental oxygen; I48.91 Unspecified atrial fibrillation; I10 Essential (primary) hypertension; J20.9 Acute bronchitis, unspecified; Z20.828 Contact with and (suspected) exposure to other viral communicable diseases; Z79.82 Long term (current) use of aspirin; Z79.899 Other long term (current) drug therapy
CPT/HCPCS: 0241U; 36415; 36600; 71045; 71250; 74150; 80048; 80053; 81001; 82040; 82803; 83735; 83880; 84100; 84484; 85025; 85610; 87040; 87070; 87107; 87205; 92610; 93005; 94002; 94003; 94640; 94660; 94799; 96365; 96367; 96375; 99284; 99291; C1758; J0295; J0330; J1650; J1940; J1956; J2060; J2250; J2270; J2370; J2543; J3010; P9047